=== PATIENT | male | born 1960 | race American Indian/Alaskan Native ===

== ENCOUNTER 2016-09-16 13:26 | Day surgery (SDC) | payer MEDICARE, MEDICAID ==
[2016-09-16 13:32] VITALS: BMI 53.4
[2016-09-16] MEDS ORDERED: Lactated Ringer's 500 ML IV ONE (14:20)
[2016-09-16] MEDS ORDERED: Etomidate 20 mg/10ml Inj IV ONE ×2 (14:21→14:33)
[2016-09-16] MEDS ORDERED: Midazolam 2 MG/2 ML VIAL ONE (14:22)
--- NOTE | 2016-09-16 14:22 | CP.SDSHP ---
Same Day Surgery H & P - History Proposed Procedure: Colonoscopy Pre-Op Diagnosis: Constipation - Previous Medical/Surgical History Cardiac: Hypertension, ASHD/CAD Endocrine/Metabolic: Diabetes Neuro: TIA/CVA - Allergies Allergies: Allergies No Known Allergies Allergy (Verified 06/22/16 10:43) - Current Medications Current Medications: reviewed - Physical Exam General Appearance: obese Mental Status: Alert & Oriented x3 Heart: WNL Lungs: WNL GI: WNL - {Optional Preform as Required} Abdomen: WNL (obese) - Impression Impression: constipation Pt. Evaluated Today:Candidate for Anesthesia & Procedure: Yes - Date & Time Date: 09/16/16 Time: 14:21 Short Stay Discharge - Short Stay Discharge Admitting Diagnosis/Reason for Visit: CONSTIPATION Disposition: HOME/ ROUTINE Referrals: Robinson Connors MD [Primary Care Provider] -
[2016-09-16 14:30] VITALS: O2SAT 100
[2016-09-16 15:14] VITALS: TEMP 97.2
[2016-09-16] MEDS ORDERED: Ketamine 50 mg/ml Inj (10 ml) ONE (15:24)
[2016-09-16 17:18] VITALS: BP 132/77; PULSE 63; RESP 18
== END 2016-09-16 17:09 | disposition home or self-care (01) ==
LOC: C.ENDO 13:26
PROVIDERS: ATTEND Internal Medicine Gastroenterology
DX: D12.2 Benign neoplasm of ascending colon (principal); K59.00 Constipation, unspecified
CPT/HCPCS: 45388; 82948; 88305; J2250; J7120

== ENCOUNTER 2017-05-10 08:08 | Day surgery (SDC) | payer MEDICARE, MEDICAID ==
[2016-10-20 11:28] VITALS: BMI 40.8
[2017-05-10] MEDS ORDERED: Verapamil 2 ML ONE (11:36)
[2017-05-10] MEDS ORDERED: Iodixanol 320 MG/ML 100 ML BOTTLE IV ONE (11:39)
[2017-05-10] MEDS ORDERED: Midazolam 2 MG/2 ML VIAL ONE ×3 (11:39→12:26)
[2017-05-10] MEDS ORDERED: DiphenhydrAMINE 50 mg/ml Inj ONE ×2 (12:09→12:27)
[2017-05-10] MEDS ORDERED: Sodium Chloride 0.9% 250 ML IV ONE (16:37)
[2017-05-10 16:55] VITALS: O2SAT 100
[2017-05-10 17:45] VITALS: BP 136/62; PULSE 64; RESP 16; TEMP 97.7
--- NOTE | 2017-05-10 23:43 | CARDCATH ---
PROCEDURE DATE: 05/10/2017 INDICATION: Mr. Brendan Vega is a 56-year-old male, moderately obese with BMI greater than 45 with body weight of 220 kilos; 450 pounds, who was having intermittent episodes of chest pain and shortness of breath. Patient had prior history of CAD and stenting. He could not undergo nuclear stress test secondary to his weight limitation. Therefore, he was brought to the shop laborer for evaluation of CAD as etiology of his presentation. PROCEDURE PERFORMED: Left heart catheterization with selective left and right coronary angiogram via left radial approach, left ventriculogram, 6-Bulgarian left radial arterial access, wristband for hemostasis. ANGIOGRAPHIC FINDINGS: Left main, large sized vessel bifurcates into LAD and left circumflex coronary artery. Left circumflex coronary artery is a large sized vessel runs in the AV groove and gives off 2 obtuse marginal branches. LAD is a large sized vessel, has a proximal stent with a proximal edge of the stent has a 70% stenosis, type I LAD gives off 2 medium sized diagonal branches. RCA is a large sized vessel, has mid stent patent, but distal edge of the stent had a 65% stenosis. Left ventriculogram performed show ejection fraction of 55%, LVEDP was 49 mmHg. IMPRESSION: RCA 65% stenosis, LAD approximately 75% stenosis. RECOMMENDATIONS: The patient is to undergo staged intervention of the LAD and RCA in 1 to 2 weeks' time at [facility]. Matty Beltran MD
--- NOTE | 2017-05-12 16:39 | CARD ---
APPROVED REPORT EKG Measurement Heart [id number] <Conclusion> Sinus bradycardia with 1st degree AV block Otherwise normal ECG
== END 2017-05-10 18:21 | disposition home or self-care (01) ==
LOC: C.SDS 08:08
PROVIDERS: ATTEND Internal Medicine Interventional Cardiology
DX: I25.118 Atherosclerotic heart disease of native coronary artery with other forms of angina pectoris (principal)
CPT/HCPCS: 82948; 93005; 93452; C1769; C1887; C1894; J1200; J2001; J2250; J3010; J7040; Q9967

== ENCOUNTER 2018-04-08 08:33 | Outpatient (CLI) | payer MEDICARE, MEDICAID | END 2018-04-08 08:34 | disposition home or self-care (01) | LOC: C.RADH 08:33 | DX: Z98.84 Bariatric surgery status (principal) ==

== ENCOUNTER 2018-04-08 09:25 | Emergency (ER) | payer MEDICARE, MEDICAID ==
[2018-04-08 09:25] VITALS: BMI 56.0
[2018-04-08 09:37] VITALS: O2SAT 100
--- NOTE | 2018-04-08 10:29 | C.PDOC ---
History Of Present Illness 57 y/o morbidly obese male, with PMHx of CVA and resulting right-sided weakness, lives in longterm, now presents to the ED with complaints of bilateral medial thigh pain for 1 week. He denies any abdominal pain, penile or testicular pain, nausea, vomiting, fevers, chest pain, or SOB other than baseline. No new weakness or numbness. He also denies any dysuria, hematuria, incontinence, testicular pain/swelling, penile pain or swelling. Of note patient is bed bound at baseline. Time Seen by Provider: 04/08/18 09:45 Chief Complaint (Nursing): Groin Pain History Per: Patient History/Exam Limitations: no limitations Onset/Duration Of Symptoms: Days Current Symptoms Are (Timing): Still Present Past Medical History Reviewed: Historical Data, Nursing Documentation, Vital Signs Vital Signs: Last Vital Signs Temp 98 F 04/08/18 09:33 Pulse 69 04/08/18 09:33 Resp 20 04/08/18 09:33 BP 150/65 04/08/18 09:33 Pulse Ox 100 04/08/18 09:33 - Medical History PMH: Arthritis, CAD, Colonic Polyps, Depression, Gall Bladder Disease (ACUTE CHOLECYSTITIS), HTN, Hypercholesterolemia Denies: Diabetes, Hepatitis, HIV, Chronic Kidney Disease, Sexually Transmitted Disease Comment Only: Seizures (pt denies seizures) Surgical History: Coronary Stent (X2, ptca last was 04/2017), Endoscopy Denies: Pacemaker - [facility] Procedures CATARAC PHACOEMULS/ASPIR (03/06/04) EXTRACAP LENS EXTRAC NEC (03/06/04) Family History: States: No Known Family Hx - Social History Hx Tobacco Use: No Hx Alcohol Use: No Hx Substance Use: No - Immunization History Hx Tetanus Toxoid Vaccination: No Hx Influenza Vaccination: No Hx Pneumococcal Vaccination: No Review Of Systems Constitutional: Negative for: Fever, Chills Cardiovascular: Negative for: Chest Pain Respiratory: Negative for: Shortness of Breath Gastrointestinal: Negative for: Nausea, Vomiting, Abdominal Pain Genitourinary: Negative for: Dysuria, Incontinence, Hematuria, Penile Discharge, Penile Pain, Other (testicular pain/swelling) Musculoskeletal: Positive for: Other (Pain to bilateral medial thighs) Skin: Negative for: Rash Neurological: Negative for: Weakness (no new weakness), Numbness Physical Exam - Physical Exam Appears: Non-toxic, No Acute Distress, Other (Morbidly obese, 210 kilo male) Skin: Warm, No Rash Head: Atraumatic, Normacephalic Eye(s): bilateral: PERRL, EOMI Neck: Supple Chest: Symmetrical, No Tenderness Cardiovascular: Rhythm Regular, No Murmur Respiratory: No Rales, No Rhonchi, No Wheezing, Other (Clear to auscultation bilaterally) Gastrointestinal/Abdominal: Bowel Sounds (normoactive), Soft, No Tenderness, No Distention, No Guarding, No Rebound Male Genital: Normal Inspection, No Testicular Tenderness, No Testicular Swelling, No Inguinal Tenderness, No Inguinal Swelling, No Scrotal Swelling, No Circumcised Extremity: No Normal ROM (dec rom right upper and lower ext from stroke), Tenderness (Bilateral medial thigh tenderness, with no erythema or increased warmth), Capillary Refill (< 2 sec), Swelling (+ bilateral edema, with fullness and induration to posterior right lower thigh compared to left ), Other (fullness/mild induration to the medial posterior right lower thigh) Pulses: Left Dorsalis Pedis: Decreased (1+), Right Dorsalis Pedis: Decreased (1+) Neurological/Psych: Oriented x3, Normal Speech, Normal Cognition, Normal Sensation ED Course And Treatment O2 Sat by Pulse Oximetry: 100 (RA) Pulse Ox Interpretation: Normal Medical Decision Making Medical Decision Making: Impression: 57 y/o morbidly obese male presenting w/ bilateral medial thigh pain, right > left. Patient has hx of right-sided weakness secondary to old CVA, and is bed bound. No associated urinary complaints, fevers, rash, testicular pain or swelling. Plan: Tylenol PO given for pain. Venous doppler study of the bilateral LE ordered. 1305 bilateral venous dopplers of lower extremities neg, discussed with Dr Graham, will send pt back to longterm. Disposition Discussed With : Emerita Giles Doctor Will See Patient In The: Office Counseled Patient/Family Regarding: Studies Performed, Diagnosis, Need For Followup - Disposition Disposition: TRANSF TO SNF Disposition Time: 13:09 Condition: GOOD Additional Instructions: Take Tylenol or Motrin for pain to thighs. FOllow up with Dr Giles. Return for any worse symptoms, Instructions: Muscle and Bone Pain (DC) Forms: [facility] (Danish), General Discharge Instructions - Clinical Impression Clinical Impression: Bilateral thigh pain - PA / INSTRUMENT MECHANICS SUPERVISOR / Resident Statement MD/DO has reviewed & agrees with the documentation as recorded. - Scribe Statement The provider has reviewed the documentation as recorded by the Abelibivet Allen All medical record entries made by the Abelibe were at my direction and personally dictated by me. I have reviewed the chart and agree that the record accurately reflects my personal performance of the history, physical exam, medical decision making, and the department course for this patient. I have also personally directed, reviewed, and agree with the discharge instructions and disposition.
[2018-04-08 13:30] VITALS: BP 145/59; PULSE 88; RESP 18; TEMP 97.7
--- NOTE | 2018-04-11 09:52 | VASCLAB ---
Date of service: 04/08/2018 PROCEDURE: Lower Extremity Venous Duplex Exam. HISTORY: Bilateral medial thigh pain, non ambulatory PRIORS: None. TECHNIQUE: Bilateral common femoral, femoral, popliteal and posterior tibial, peroneal and great saphenous veins were evaluated. Flow was assessed with color Doppler, compressibility, assessment of phasic flow and augmentation response. Report prepared by BEBA Parada FINDINGS: RIGHT: 1. Common Femoral Vein: 1.1. Compressibility - Fully compressible: Thrombus - None : Flow - Phasic: Augmentation -Normal: Reflux - None. 2. Femoral Vein: (Proximal to mid views only) 2.1. Compressibility - Fully compressible: Thrombus - None : Flow - Phasic: Augmentation -Normal: Reflux - None. 3. Popliteal Vein: 3.1. Compressibility - Fully compressible: Thrombus - None : Flow - Phasic: Augmentation -Normal: Reflux - None. 4. Posterior Tibial Vein: 5. Peroneal Vein: 6. Great Saphenous Vein: 6.1. Compressibility - Fully compressible: Thrombus - None: Flow - Phasic: Augmentation - Normal: Reflux - None. LEFT: 1. Common Femoral Vein: 1.1. Compressibility - Fully compressible: Thrombus - None: Flow - Phasic: Augmentation -Normal: Reflux - None. 2. Femoral Vein: (Proximal to mid views only) 2.1. Compressibility - Fully compressible: Thrombus - None: Flow - Phasic: Augmentation -Normal: Reflux - None. 3. Popliteal Vein: 3.1. Compressibility - Fully compressible: Thrombus - None : Flow - Phasic: Augmentation -Normal: Reflux - None. 4. Posterior Tibial Vein: 5. Peroneal Vein: 6. Great Saphenous Vein: 6.1. Compressibility - Fully compressible: Thrombus - None: Flow - Phasic: Augmentation - Normal: Reflux - None. OTHER FINDINGS: Bilateral common femoral, proximal to mid femoral, popliteal and great saphenous veins are compressible. Technically limited and difficult exam due to patient large body habitus. IMPRESSION: No evidence of deep or superficial vein thrombosis of bilateral lower extremities, for the examined veins.
== END 2018-04-08 13:32 ==
LOC: C.ER 09:25
DX: M79.652 Pain in left thigh (principal); M79.651 Pain in right thigh; I25.10 Atherosclerotic heart disease of native coronary artery without angina pectoris; I10 Essential (primary) hypertension; I69.351 Hemiplegia and hemiparesis following cerebral infarction affecting right dominant side

== ENCOUNTER 2018-05-27 23:47 | Inpatient (IN) | payer MEDICAID, MEDICARE, OTHER ==
--- NOTE | 2018-05-28 00:10 | C.PDOC ---
History Of Present Illness 57 year old male with a history of CAD, depression, HTN, high cholesterol, stroke (with residual right sided deficit) presents to the emergency department from half-way with complaints of bilateral thigh and groin pain. Patient s tates that he has had the pain since January 2018 but it worsened recently. He notes that pain as throbbing. He denies any trauma to the area. No abnormal penile discharge. Patient denies rash, dysuria, constipation, diarrhea, dark bloody stools, and leg swelling. PMD: Dr. Giles Time Seen by Provider: 05/28/18 00:04 Chief Complaint (Nursing): Groin Pain History Per: Patient History/Exam Limitations: no limitations Onset/Duration Of Symptoms: Other (4 months) Current Symptoms Are (Timing): Still Present Quality Of Discomfort: "Pain" Associated Symptoms: denies: Diarrhea, Constipation, Urinary Symptoms, Other (leg swelling) Past Medical History Reviewed: Historical Data, Nursing Documentation, Vital Signs Vital Signs: Last Vital Signs Temp 99 F 05/28/18 00:01 Pulse 60 05/28/18 00:01 Resp 16 05/28/18 00:01 BP 165/68 H 05/28/18 00:01 Pulse Ox 99 05/28/18 00:01 - Medical History PMH: Arthritis, CAD, Colonic Polyps, Depression, Gall Bladder Disease (ACUTE CHOLECYSTITIS), HTN, Hypercholesterolemia Denies: Diabetes, Hepatitis, HIV, Chronic Kidney Disease, Sexually Transmitted Disease Comment Only: Seizures (pt denies seizures) Surgical History: Coronary Stent (X2, ptca last was 04/2017), Endoscopy Denies: Pacemaker - [facility] Procedures CATARAC PHACOEMULS/ASPIR (03/06/04) EXTRACAP LENS EXTRAC NEC (03/06/04) Family History: States: No Known Family Hx - Social History Hx Tobacco Use: No Hx Alcohol Use: No Hx Substance Use: No - Immunization History Hx Tetanus Toxoid Vaccination: No Hx Influenza Vaccination: No Hx Pneumococcal Vaccination: No Review Of Systems Constitutional: Negative for: Fever, Chills, Weakness, Malaise Eyes: Negative for: Pain, Vision Change ENT: Negative for: Ear Pain, Ear Discharge, Nose Pain Cardiovascular: Negative for: Chest Pain, Palpitations, Orthopnea Respiratory: Negative for: Cough, Shortness of Breath, Hemoptysis, SOB with Excertion, Pleuritic Pain Gastrointestinal: Negative for: Nausea, Abdominal Pain, Diarrhea, Constipation, Melena Genitourinary: Negative for: Dysuria, Frequency Musculoskeletal: Positive for: Other (thigh pain, groin pain). Negative for: Neck Pain, Shoulder Pain, Back Pain, Leg Pain (leg swelling) Skin: Negative for: Rash Neurological: Negative for: Weakness, Numbness Psych: Negative for: Anxiety, Depression Physical Exam - Physical Exam Appears: Well, Non-toxic, No Acute Distress Skin: Normal Color, Warm, Dry Head: Atraumatic, Normacephalic Eye(s): bilateral: Normal Inspection, PERRL, EOMI Nose: Normal Oral Mucosa: Moist Tongue: Normal Appearing Lips: Normal Appearing Teeth: Normal Dentition Gingiva: Normal Appearing Throat: Normal, No Erythema, No Exudate Neck: Normal, Supple, Other (no meningeal signs) Chest: Symmetrical, No Tenderness Cardiovascular: Rhythm Regular, No Murmur Respiratory: Normal Breath Sounds, No Rales, No Rhonchi, No Wheezing Gastrointestinal/Abdominal: Soft, No Tenderness, No Guarding, No Rebound, Other (obese) Back: Normal Inspection, No CVA Tenderness, No Vertebral Tenderness Male Genital: Normal Inspection, No Testicular Tenderness, No Testicular Swelling, No Inguinal Tenderness, No Inguinal Swelling, No Scrotal Swelling Extremity: No Normal ROM, No Tenderness, No Pedal Edema, No Calf Tenderness, No Capillary Refill, Other (n/v intact b/l LE) Extremity: Bilateral: Atraumatic, No Pedal Edema, Normal Color And Temperature, Normal ROM Pulses: Left Dorsalis Pedis: Normal, Right Dorsalis Pedis: Normal Neurological/Psych: Oriented x3, Normal Speech, Normal Cognition, Other (residual right-sided deficit) ED Course And Treatment - Laboratory Results Result Diagrams: 05/28/18 00:54 05/28/18 00:54 O2 Sat by Pulse Oximetry: 99 (RA) Pulse Ox Interpretation: Normal Medical Decision Making Medical Decision Makin57 year old male with a history of CAD, depression, HTN, high cholesterol, stroke (with residual right sided deficit) presents to the emergency department from half-way with complaints of bilateral thigh and groin pain. ?DVT given on stretcher / bed for most of day given R sided deficit in NH. No perineum rash noted. No crepitus or erythema. No penile d/c or scrotal rash. No signs of trauma. No b/l LE edema. No CP or SOB. N/V intact distally in b/l LE. Plan: Blood Bank Type and Screen CMP CBC PTT Prothrombin Time US Testicular Venous Duplex Scan Lower Extremity [address] Giles, recommended admission for observation, heparin, and venous doppler. US Testicular: Impression: Bilateral heterogeneous echotexture of the testicles. Findings represent sequelae of prior inflammatory pathology/infection. Followup exam is suggested to exclude testicular neoplastic infiltration which is felt less likely on the current exam. No evidence of testicular torsion. No definite mass lesion is noted. Mild bilateral hydroceles. 0306 pt denies any dark or bloody stool Findings on US w/ sequelae of prior infection / inflammation: No acute findings per US. No elevated WBC pending urine heparin ordered given no venous doppler availabe currently. 0331 urine unremarkable Disposition - Disposition Disposition Time: 01:53 Condition: GOOD Forms: [facility] (Uzbek) - Clinical Impression Clinical Impression: Leg pain, Testicle pain - Scribe Statement The provider has reviewed the documentation as recorded by the Scribe (Hiram Hercules) Provider Attestation: All medical record entries made by the Scribe were at my direction and personally dictated by me. I have reviewed the chart and agree that the record accurately reflects my personal performance of the history, physical exam, medical decision making, and the department course for this patient. I have also personally directed, reviewed, and agree with the discharge instructions and disposition.
[2018-05-28 00:57] LABS: BASO % 0.7 % (0.0-2.0); EOS # 0.1 K/uL (0.0-0.7); EOS % 2.2 % (0.0-4.0); HEMOGLOBIN 12.9 g/dL (12.0-18.0); LYMPH # 1.7 K/uL (1.0-4.3); LYMPH % 31.5 % (20.0-40.0); MEAN CELL VOLUME 80.7 fL (80.0-94.0); MEAN CORPUSCULAR HEMOGLOBIN 26.1 pg (27.0-31.0); MEAN CORPUSCULAR HGB CONC 32.3 g/dL (33.0-37.0); MEAN PLATELET VOLUME 8.5 fL (7.2-11.7); MONO # 0.5 K/uL (0.0-0.8); MONO % 8.7 % (0.0-10.0); NEUT % 56.9 % (50.0-75.0); NRBC % 0.1 % (0.0-2.0); RBC 4.94 Mil/uL (4.40-5.90); RED CELL DISTRIBUTION WIDTH 15.7 % (11.5-14.5); WHITE BLOOD COUNT 5.3 K/uL (4.8-10.8)
[2018-05-28 01:06] LABS: INR 1.1; PROTHROMBIN TIME 11.5 SECONDS (9.7-12.2)
[2018-05-28 01:10] LABS: ALB/GLOB RATIO 1.1 (1.0-2.1); ALBUMIN 3.9 g/dL (3.5-5.0); CALCIUM 9.5 mg/dl (8.6-10.4)
[2018-05-28] MEDS ORDERED: Tramadol 25 mg PO STA (02:12)
[2018-05-28] MEDS ORDERED: Tramadol 25 mg ONE (02:17)
[2018-05-28 03:20] LABS: SQUAMOUS EPITHIAL < 1 /hpf (0-5); URINE BILIRUBIN NEGATIVE (NEGATIVE); URINE BLOOD NEGATIVE (NEGATIVE); URINE CLARITY Clear (Clear); URINE COLOR Yellow (YELLOW); URINE GLUCOSE (UA) 1+ mg/dL (Normal); URINE LEUKOCYTE ESTERASE NEG Leu/uL (Negative); URINE PROTEIN NEGATIVE (NEGATIVE); URINE UROBILINOGEN NORMAL mg/dL (0.2-1.0)
[2018-05-28] MEDS: Heparin25000 units/250ml 1/2NS 25,000 UNITS/250 ML BAG IV PRN ×3 (04:14→18:59)
[2018-05-28] MEDS ORDERED: Albuterol 0.083% Inhal Sol (2.5 mg/3 mL) UD IH PRN (07:27)
[2018-05-28 07:50] VITALS: RESP 20
[2018-05-28] MEDS: (Lantus) Insulin Glargine, Recombinant SC SCH ×2 (08:43→21:50)
[2018-05-28] MEDS: (Novolog) Insulin Aspart, Recombinant 100 u/ml 10 ml vial SC SCH ×3 (08:44→16:53)
[2018-05-28] MEDS: (Novolin R) Insulin Human Regular 100 units/ml vial SC SCH ×4 (08:45→22:00)
[2018-05-28] MEDS ORDERED: Ergocalciferol 50,000 Intl Units Cap PO SCH (10:00)
--- NOTE | 2018-05-28 11:10 | VASCLAB ---
Date of service: 05/28/2018 PROCEDURE: Lower Extremity Venous Duplex Exam. HISTORY: b/l le pain PRIORS: None. TECHNIQUE: Bilateral common femoral, femoral, popliteal and posterior tibial, peroneal and great saphenous veins were evaluated. Flow was assessed with color Doppler, compressibility, assessment of phasic flow and augmentation response. Report prepared by Marisabel Archer Eze FINDINGS: RIGHT: 1. Common Femoral Vein: 1.1. Compressibility - Fully compressible: Thrombus - None : Flow - Phasic: Augmentation -Normal: Reflux - None. 2. Femoral Vein: 2.1. Compressibility - Fully compressible: Thrombus - None : Flow - Phasic: Augmentation -Normal: Reflux - None. 3. Popliteal Vein: 3.1. Compressibility - Fully compressible: Thrombus - None : Flow - Phasic: Augmentation -Normal: Reflux - None. 4. Great Saphenous Vein: 4.1. Compressibility - Fully compressible: Thrombus - None: Flow - Phasic: Augmentation - Normal: Reflux - None. LEFT: 1. Common Femoral Vein: 1.1. Compressibility - Fully compressible: Thrombus - None: Flow - Phasic: Augmentation -Normal: Reflux - None. 2. Femoral Vein: 2.1. Compressibility - Fully compressible: Thrombus - None: Flow - Phasic: Augmentation -Normal: Reflux - None. 3. Popliteal Vein: 3.1. Compressibility - Fully compressible: Thrombus - None : Flow - Phasic: Augmentation -Normal: Reflux - None. 4. Great Saphenous Vein: 4.1. Compressibility - Fully compressible: Thrombus - None: Flow - Phasic: Augmentation - Normal: Reflux - None. OTHER FINDINGS: Right: The mid to distal femoral, posterior tibial and peroneal veins were not visualized due to body habitus, limited study. Left: The mid to distal femoral, posterior tibial and peroneal veins were not visualized due to body habitus, limited study. IMPRESSION: Right: No evidence of deep or superficial vein thrombosis of the right lower extremity in those veins visualized. Normal valve function noted of the right side. Left: No evidence of deep or superficial vein thrombosis of the left lower extremity in those veins visualized. Normal valve function noted of the left side.
[2018-05-28] MEDS: Metoprolol Succinate 100 mg XL Tab PO SCH (11:11)
[2018-05-28] MEDS: Calcium-Vit D 500 mg-200 Units Tab UD PO SCH (11:12)
[2018-05-28] MEDS: Multiple Vitamins Tab PO SCH (11:13)
[2018-05-28] MEDS: Divalproex 250 mg DR Tab PO SCH ×2 (11:14→17:41)
--- NOTE | 2018-05-28 17:37 | US ---
Date of service: 05/28/2018 HISTORY: b/l testicle pain TECHNIQUE: Realtime sonography through the scrotum with color and doppler flow. COMPARISON: None Available. FINDINGS: RIGHT TESTICLE: Measures 3.9 x 2.0 x 2.9 cm. Heterogeneous echotexture.. Normal flow . RIGHT EPIDIDYMIS: Epididymal head measures 1.1 x 0.8 x 1.3 cm. Grossly unremarkable appearance with normal flow. LEFT TESTICLE: Measures 3.8 x 1.6 x 2.7 cm. Normal echotexture and flow. LEFT EPIDIDYMIS: Epididymal head measures 0.8 x 0.8 x 0.8 cm. Grossly unremarkable with normal flow. HYDROCELE: Bilateral hydroceles VARICOCELE: None. OTHER FINDINGS: None. IMPRESSION: Both testicles are heterogeneous right greater than left however both exhibit arterial flow. Bilateral hydroceles.
[2018-05-28 19:40] LABS: IRON 47 ug/dL (49-181)
[2018-05-28 19:41] LABS: HDL CHOLESTEROL 40 mg/dL (30-70)
[2018-05-28 19:50] LABS: % IRON SATURATION 18 (20-55); TOTAL IRON BINDING CAPACITY 261 ug/dL (250-450)
[2018-05-28 19:52] LABS: LDL CHOLESTEROL 113 mg/dL (0-129)
[2018-05-28 20:48] LABS: FOLATE 5.9 ng/mL
[2018-05-28 21:37] LABS: URINE BILIRUBIN NEGATIVE (NEGATIVE); URINE BLOOD 3+ (NEGATIVE); URINE CLARITY Clear (Clear); URINE COLOR Yellow (YELLOW); URINE GLUCOSE (UA) 3+ mg/dL (Normal); URINE LEUKOCYTE ESTERASE NEG Leu/uL (Negative); URINE PROTEIN NEGATIVE (NEGATIVE); URINE UROBILINOGEN NORMAL mg/dL (0.2-1.0)
[2018-05-29] MEDS: (Novolin R) Insulin Human Regular 100 units/ml vial SC SCH ×4 (08:30→21:30)
[2018-05-29] MEDS: (Novolog) Insulin Aspart, Recombinant 100 u/ml 10 ml vial SC SCH ×3 (08:30→17:59)
[2018-05-29] MEDS: (Lantus) Insulin Glargine, Recombinant SC SCH ×2 (08:30→21:30)
[2018-05-29 08:46] LABS: INR 1.1; PROTHROMBIN TIME 12.5 SECONDS (9.7-12.2)
[2018-05-29] MEDS: Multiple Vitamins Tab PO SCH (10:28)
[2018-05-29] MEDS: Calcium-Vit D 500 mg-200 Units Tab UD PO SCH (10:28)
[2018-05-29] MEDS: Divalproex 250 mg DR Tab PO SCH ×2 (10:29→17:55)
[2018-05-29] MEDS: Metoprolol Succinate 100 mg XL Tab PO SCH (10:29)
--- NOTE | 2018-05-29 11:22 | CP.PCM.CON ---
History of Present Illness - History of Present Illness History of Present Illness: Pulmonary Consult, Covering Dr Rosales The Patient was seen and examined at the bedside, Medical records reviewed, and management issues were discussed and formulated with the house staff. Events reviewed Mr Vega is a 57 year old male with a history of HTN, HLD, CAD, stroke (with residual right sided deficit) and depression Who [facility] department [facility] with complaints of bilateral thigh and groin pain. Pulmonary consult called for shortness of breath concerning for acute DVT since Patient on stretcher/bed for most of day given R sided deficit in NH. No CP, cough, sputum production or Hemoptysis Patient comfortable, saturation 96% on RA Stat CXR ordered Past Patient History - Infectious Disease Hx of Infectious Diseases: None - Past Medical History & Family History Past Medical History?: Yes - Past Social History Smoking Status: Never Smoked - CARDIAC Hx Cardiac Disorders: Yes (CAD, Coronary Stent) Hx Hypercholesterolemia: Yes Hx Hypertension: Yes - PULMONARY Hx Respiratory Disorders: No Hx Tuberculosis: No - NEUROLOGICAL HX Cerebrovascular Accident: Yes (CVA 2007) - HEENT Hx HEENT Problems: Yes Other/Comment: RIGHT EYE CORNEA TRANSPLANT 1984 - RENAL Hx Chronic Kidney Disease: No - ENDOCRINE/METABOLIC Hx Endocrine Disorders: Yes Hx Diabetes Mellitus Type 2: Yes - HEMATOLOGICAL/ONCOLOGICAL Hx Human Immunodeficiency Virus (HIV): No - INTEGUMENTARY Hx Dermatological Problems: No - MUSCULOSKELETAL/RHEUMATOLOGICAL Hx Arthritis: Yes - GASTROINTESTINAL Hx Gall Bladder Disease: Yes (ACUTE CHOLECYSTITIS) - GENITOURINARY/GYNECOLOGICAL Hx Sexually Transmitted Disorders: No - PSYCHIATRIC Hx Depression: Yes Hx Substance Use: No - SURGICAL HISTORY Hx Coronary Stent: Yes (X2, ptca last was 04/2017) - ANESTHESIA Hx Anesthesia: Yes Hx Anesthesia Reactions: No Hx Malignant Hyperthermia: No Meds Allergies/Adverse Reactions: Allergies Allergy/AdvReac Type Severity Reaction Status Date / Time No Known Allergies Allergy Verified 05/28/18 00:06 - Medications Medications: Current Medications Albuterol Sulfate (Albuterol 0.083% Inhal Maria Isabel (2.5 Mg/3 Ml) Ud) 2.5 mg IH RQ6 PRN PRN Reason: Shortness of Breath Amlodipine Besylate (Norvasc) 10 mg PO DAILY [facility] Last Admin: 05/29/18 10:28 Dose: 10 mg Aspirin (Ecotrin) 81 mg PO DAILY [facility] Last Admin: 05/29/18 10:28 Dose: 81 mg Calcium/Vitamin D (Oyster Shell Calcium/Vitamin D 500 Mg-200 Iu) 1 tab PO DAILY [facility] Last Admin: 05/29/18 10:28 Dose: 1 tab Clopidogrel Bisulfate (Plavix) 75 mg PO DAILY [facility] Last Admin: 05/29/18 10:29 Dose: 75 mg Divalproex Sodium (Depakote Dr) 250 mg PO BID [facility] Last Admin: 05/29/18 10:29 Dose: 250 mg Docusate Sodium (Colace) 200 mg PO HS PRN PRN Reason: Constipation Last Admin: 05/28/18 11:11 Dose: 200 mg Ergocalciferol (Drisdol 50,000 Intl Units Cap) 1 cap PO QWK [facility] Last Admin: 05/28/18 11:16 Dose: 1 cap Famotidine (Pepcid) 20 mg PO BID [facility] Last Admin: 05/29/18 10:28 Dose: 20 mg Ferrous Sulfate (Feosol) 325 mg PO DAILY [facility] Last Admin: 05/29/18 10:28 Dose: 325 mg Furosemide (Lasix) 20 mg PO DAILY [facility] Last Admin: 05/29/18 10:28 Dose: 20 mg Hydrochlorothiazide (Hydrodiuril) 25 mg PO DAILY [facility] Last Admin: 05/29/18 10:28 Dose: 25 mg Insulin Aspart (Novolog) 12 unit SC ACTID [facility] Last Admin: 05/29/18 08:30 Dose: 12 units Insulin Glargine (Lantus) 30 unit SC ACBHS [facility] Last Admin: 05/29/18 08:30 Dose: 30 units Insulin Human Regular (Novolin R) 0 unit SC ACHS [facility]; Protocol Last Admin: 05/29/18 08:30 Dose: 2 units Losartan Potassium (Cozaar) 100 mg PO DAILY [facility] Last Admin: 05/29/18 10:28 Dose: 100 mg Metoprolol Succinate (Toprol Xl) 100 mg PO DAILY [facility] Last Admin: 05/29/18 10:29 Dose: 100 mg Multivitamins (Hexavitamin) 1 tab PO DAILY [facility] Last Admin: 05/29/18 10:28 Dose: 1 tab Tramadol HCl (Ultram) 50 mg PO TID PRN PRN Reason: pain Last Admin: 05/29/18 10:33 Dose: 50 mg Results - Vital Signs Recent Vital Signs: Last Vital Signs Temp 99.4 F 05/29/18 00:00 Pulse 62 05/29/18 00:00 Resp 20 05/29/18 00:00 BP 137/65 05/29/18 10:28 Pulse Ox 96 05/29/18 00:00 - Labs Result Diagrams: 05/28/18 00:54 05/28/18 00:54 Labs: Laboratory Results - last 24 hr 05/28/18 05/28/18 05/28/18 11:16 16:04 19:25 PT INR APTT POC Glucose (mg/dL) 248 H 292 H Hemoglobin A1c Iron TIBC % Saturation Triglycerides 104 Cholesterol 168 LDL Cholesterol Direct 113 HDL Cholesterol 40 Vitamin B12 > 1000 H Folate 5.9 TSH 3rd Generation Urine Color Urine Clarity Urine pH Ur Specific [place] Urine Protein Urine Glucose (UA) Urine Ketones Urine Blood Urine Nitrate Urine Bilirubin Urine Urobilinogen Ur Leukocyte Esterase Urine WBC (Auto) Urine RBC (Auto) 05/28/18 05/28/18 05/28/18 19:25 19:25 19:25 PT INR APTT > 400 H* D POC Glucose (mg/dL) Hemoglobin A1c 9.7 H Iron 47 L TIBC 261 % Saturation 18 L Triglycerides Cholesterol LDL Cholesterol Direct HDL Cholesterol Vitamin B12 Folate TSH 3rd Generation Urine Color Urine Clarity Urine pH Ur Specific [place] Urine Protein Urine Glucose (UA) Urine Ketones Urine Blood Urine Nitrate Urine Bilirubin Urine Urobilinogen Ur Leukocyte Esterase Urine WBC (Auto) Urine RBC (Auto) 05/28/18 05/28/18 05/29/18 21:06 21:23 02:05 PT INR APTT POC Glucose (mg/dL) 280 H 321 H Hemoglobin A1c Iron TIBC % Saturation Triglycerides Cholesterol LDL Cholesterol Direct HDL Cholesterol Vitamin B12 Folate TSH 3rd Generation Urine Color Yellow Urine Clarity Clear Urine pH 5.0 Ur Specific [place] 1.013 Urine Protein Negative Urine Glucose (UA) 3+ H Urine Ketones Negative Urine Blood 3+ H Urine Nitrate Negative Urine Bilirubin Negative Urine Urobilinogen Normal Ur Leukocyte Esterase Neg Urine WBC (Auto) 1 Urine RBC (Auto) 59 H 05/29/18 05/29/18 05/29/18 07:12 08:15 08:31 PT 12.5 H INR 1.1 APTT 31 D POC Glucose (mg/dL) 244 H Hemoglobin A1c Iron TIBC % Saturation Triglycerides Cholesterol LDL Cholesterol Direct HDL Cholesterol Vitamin B12 Folate TSH 3rd Generation 4.32 Urine Color Urine Clarity Urine pH Ur Specific [place] Urine Protein Urine Glucose (UA) Urine Ketones Urine Blood Urine Nitrate Urine Bilirubin Urine Urobilinogen Ur Leukocyte Esterase Urine WBC (Auto) Urine RBC (Auto)
--- NOTE | 2018-05-29 13:50 | RAD ---
Date of service: 05/29/2018 HISTORY: Shortness of breath COMPARISON: No prior. FINDINGS: LUNGS: Poor inspiration with low lung volumes, crowded bronchovascular markings and mild bibasilar atelectasis PLEURA: No significant pleural effusion identified, no pneumothorax apparent. CARDIOVASCULAR: No aortic atherosclerotic calcification present. Heart appears mildly enlarged. No pulmonary vascular congestion. OSSEOUS STRUCTURES: No significant abnormalities. VISUALIZED UPPER ABDOMEN: Normal. OTHER FINDINGS: None. IMPRESSION: Poor inspiration with low lung volumes, crowded bronchovascular markings and mild bibasilar atelectasis.
--- NOTE | 2018-05-29 16:27 | CP.PCM.CON ---
History of Present Illness - History of Present Illness History of Present Illness: UROLOGY CONSULTATION Past Patient History - Infectious Disease Hx of Infectious Diseases: None - Past Medical History & Family History Past Medical History?: Yes - Past Social History Smoking Status: Never Smoked - CARDIAC Hx Cardiac Disorders: Yes (CAD, Coronary Stent) Hx Hypercholesterolemia: Yes Hx Hypertension: Yes - PULMONARY Hx Respiratory Disorders: No Hx Tuberculosis: No - NEUROLOGICAL HX Cerebrovascular Accident: Yes (CVA 2007) - HEENT Hx HEENT Problems: Yes Other/Comment: RIGHT EYE CORNEA TRANSPLANT 1984 - RENAL Hx Chronic Kidney Disease: No - ENDOCRINE/METABOLIC Hx Endocrine Disorders: Yes Hx Diabetes Mellitus Type 2: Yes - HEMATOLOGICAL/ONCOLOGICAL Hx Human Immunodeficiency Virus (HIV): No - INTEGUMENTARY Hx Dermatological Problems: No - MUSCULOSKELETAL/RHEUMATOLOGICAL Hx Arthritis: Yes - GASTROINTESTINAL Hx Gall Bladder Disease: Yes (ACUTE CHOLECYSTITIS) - GENITOURINARY/GYNECOLOGICAL Hx Sexually Transmitted Disorders: No - PSYCHIATRIC Hx Depression: Yes Hx Substance Use: No - SURGICAL HISTORY Hx Coronary Stent: Yes (X2, ptca last was 04/2017) - ANESTHESIA Hx Anesthesia: Yes Hx Anesthesia Reactions: No Hx Malignant Hyperthermia: No Meds Allergies/Adverse Reactions: Allergies Allergy/AdvReac Type Severity Reaction Status Date / Time No Known Allergies Allergy Verified 05/28/18 00:06 - Medications Medications: Current Medications Albuterol Sulfate (Albuterol 0.083% Inhal Maria Isabel (2.5 Mg/3 Ml) Ud) 2.5 mg IH RQ6 PRN PRN Reason: Shortness of Breath Amlodipine Besylate (Norvasc) 10 mg PO DAILY [facility] Last Admin: 05/29/18 10:28 Dose: 10 mg Aspirin (Ecotrin) 81 mg PO DAILY [facility] Last Admin: 05/29/18 10:28 Dose: 81 mg Calcium/Vitamin D (Oyster Shell Calcium/Vitamin D 500 Mg-200 Iu) 1 tab PO DAILY [facility] Last Admin: 05/29/18 10:28 Dose: 1 tab Clopidogrel Bisulfate (Plavix) 75 mg PO DAILY [facility] Last Admin: 05/29/18 10:29 Dose: 75 mg Divalproex Sodium (Depakote Dr) 250 mg PO BID [facility] Last Admin: 05/29/18 10:29 Dose: 250 mg Docusate Sodium (Colace) 200 mg PO HS PRN PRN Reason: Constipation Last Admin: 05/28/18 11:11 Dose: 200 mg Ergocalciferol (Drisdol 50,000 Intl Units Cap) 1 cap PO QWK [facility] Last Admin: 05/28/18 11:16 Dose: 1 cap Famotidine (Pepcid) 20 mg PO BID [facility] Last Admin: 05/29/18 10:28 Dose: 20 mg Ferrous Sulfate (Feosol) 325 mg PO DAILY [facility] Last Admin: 05/29/18 10:28 Dose: 325 mg Furosemide (Lasix) 20 mg PO DAILY [facility] Last Admin: 05/29/18 10:28 Dose: 20 mg Hydrochlorothiazide (Hydrodiuril) 25 mg PO DAILY [facility] Last Admin: 05/29/18 10:28 Dose: 25 mg Insulin Aspart (Novolog) 12 unit SC ACTID [facility] Last Admin: 05/29/18 12:15 Dose: 12 units Insulin Glargine (Lantus) 30 unit SC ACBHS [facility] Last Admin: 05/29/18 08:30 Dose: 30 units Insulin Human Regular (Novolin R) 0 unit SC ACHS [facility]; Protocol Last Admin: 05/29/18 12:16 Dose: 2 units Losartan Potassium (Cozaar) 100 mg PO DAILY [facility] Last Admin: 05/29/18 10:28 Dose: 100 mg Metoprolol Succinate (Toprol Xl) 100 mg PO DAILY [facility] Last Admin: 05/29/18 10:29 Dose: 100 mg Multivitamins (Hexavitamin) 1 tab PO DAILY [facility] Last Admin: 05/29/18 10:28 Dose: 1 tab Tramadol HCl (Ultram) 50 mg PO TID PRN PRN Reason: pain Last Admin: 05/29/18 10:33 Dose: 50 mg Results - Vital Signs Recent Vital Signs: Last Vital Signs Temp 98.1 F 05/29/18 15:58 Pulse 61 05/29/18 15:58 Resp 20 05/29/18 15:58 BP 108/64 05/29/18 15:58 Pulse Ox 96 05/29/18 15:58 - Labs Result Diagrams: 05/28/18 00:54 05/28/18 00:54 Labs: Laboratory Results - last 24 hr 05/28/18 05/28/18 05/28/18 19:25 19:25 19:25 PT INR APTT > 400 H* D POC Glucose (mg/dL) Hemoglobin A1c 9.7 H Iron TIBC % Saturation Triglycerides 104 Cholesterol 168 LDL Cholesterol Direct 113 HDL Cholesterol 40 Vitamin B12 > 1000 H Folate 5.9 TSH 3rd Generation Urine Color Urine Clarity Urine pH Ur Specific [employer] Urine Protein Urine Glucose (UA) Urine Ketones Urine Blood Urine Nitrate Urine Bilirubin Urine Urobilinogen Ur Leukocyte Esterase Urine WBC (Auto) Urine RBC (Auto) 05/28/18 05/28/18 05/28/18 19:25 21:06 21:23 PT INR APTT POC Glucose (mg/dL) 280 H Hemoglobin A1c Iron 47 L TIBC 261 % Saturation 18 L Triglycerides Cholesterol LDL Cholesterol Direct HDL Cholesterol Vitamin B12 Folate TSH 3rd Generation Urine Color Yellow Urine Clarity Clear Urine pH 5.0 Ur [address] [employer] 1.013 Urine Protein Negative Urine Glucose (UA) 3+ H Urine Ketones Negative Urine Blood 3+ H Urine Nitrate Negative Urine Bilirubin Negative Urine Urobilinogen Normal Ur Leukocyte Esterase Neg Urine WBC (Auto) 1 Urine RBC (Auto) 59 H 05/29/18 05/29/18 05/29/18 02:05 07:12 08:15 PT INR APTT POC Glucose (mg/dL) 321 H 244 H Hemoglobin A1c Iron TIBC % Saturation Triglycerides Cholesterol LDL Cholesterol Direct HDL Cholesterol Vitamin B12 Folate TSH 3rd Generation 4.32 Urine Color Urine Clarity Urine pH Ur Specific [employer] Urine Protein Urine Glucose (UA) Urine Ketones Urine Blood Urine Nitrate Urine Bilirubin Urine Urobilinogen Ur Leukocyte Esterase Urine WBC (Auto) Urine RBC (Auto) 05/29/18 05/29/18 08:31 11:17 PT 12.5 H INR 1.1 APTT 31 D POC Glucose (mg/dL) 248 H Hemoglobin A1c Iron TIBC % Saturation Triglycerides Cholesterol LDL Cholesterol Direct HDL Cholesterol Vitamin B12 Folate TSH 3rd Generation Urine Color Urine Clarity Urine pH Ur Specific [employer] Urine Protein Urine Glucose (UA) Urine Ketones Urine Blood Urine Nitrate Urine Bilirubin Urine Urobilinogen Ur Leukocyte Esterase Urine WBC (Auto) Urine RBC (Auto) Assessment & Plan - Assessment and Plan (Free Text) Assessment: IMP: THIGH PAIN GROIN PAIN HX OF CVA, W RESULTANT R HEMIPARESIS OBESITY HYPERTENSION DM MICROHEMATURIA YS - Date & Time Date: 05/29/18 Time: 08:05
--- NOTE | 2018-05-29 16:42 | RAD ---
Date of service: 05/29/2018 PROCEDURE: Entire spine HISTORY: Pain COMPARISON: Comparison made with radiographs of the lumbar spine 04/08/[address] scan of the abdomen pelvis 11/09/2013 which image the lower thoracic and lumbar spine in 3 planes. Correlation also made with prior chest radiograph dated 07/08/2010 which image the thoracic spine TECHNIQUE: Limited AP views of the cervical thoracic and lumbar spine performed FINDINGS: No evidence of acute displaced fracture nor dislocation. The osseous structures intact. Mild multilevel degenerative spondylosis. Changes include endplate eburnation with lateral osteophyte formation most of which are bridging in the mid thoracic region. IMPRESSION: Limited study demonstrating no acute fractures. Follow-up study dedicated radiographs of the cervical thoracic and lumbar spine could be performed if indicated
--- NOTE | 2018-05-29 16:45 | RAD ---
PROCEDURE: Radiographs of the pelvis and bilateral hips HISTORY: pain COMPARISON: Correlation made with prior CT scan of the abdomen pelvis 11/09/2013 which image the pelvis and both hips in 3 planes. FINDINGS: BONES: No definitive radiographic evidence of acute displaced fracture nor dislocation. The osseous structures appear intact. Both femoral heads appropriately located within the respective acetabula. JOINTS: Right hip: Mild degenerative osteoarthritis both hips Sacroiliac Joints: Unremarkable. Pubic symphysis: Unremarkable. Mild degenerative spondylosis of the lumbosacral spine SOFT TISSUES: Normal. OTHER FINDINGS: None. IMPRESSION: No evidence of acute displaced fracture nor dislocation. Mild degenerative osteoarthritis both hip joints. Symptoms persist or occult fracture suspected clinically consider follow-up CT scan of the pelvis and both hips
--- NOTE | 2018-05-29 19:30 | CP.PCM.CON ---
History of Present Illness - History of Present Illness History of Present Illness: IDDM Past Patient History - Infectious Disease Hx of Infectious Diseases: None - Past Medical History & Family History Past Medical History?: Yes - Past Social History Smoking Status: Never Smoked - CARDIAC Hx Cardiac Disorders: Yes (CAD, Coronary Stent) Hx Hypercholesterolemia: Yes Hx Hypertension: Yes - PULMONARY Hx Respiratory Disorders: No Hx Tuberculosis: No - NEUROLOGICAL HX Cerebrovascular Accident: Yes (CVA 2007) - HEENT Hx HEENT Problems: Yes Other/Comment: RIGHT EYE CORNEA TRANSPLANT 1984 - RENAL Hx Chronic Kidney Disease: No - ENDOCRINE/METABOLIC Hx Endocrine Disorders: Yes Hx Diabetes Mellitus Type 2: Yes - HEMATOLOGICAL/ONCOLOGICAL Hx Human Immunodeficiency Virus (HIV): No - INTEGUMENTARY Hx Dermatological Problems: No - MUSCULOSKELETAL/RHEUMATOLOGICAL Hx Arthritis: Yes - GASTROINTESTINAL Hx Gall Bladder Disease: Yes (ACUTE CHOLECYSTITIS) - GENITOURINARY/GYNECOLOGICAL Hx Sexually Transmitted Disorders: No - PSYCHIATRIC Hx Depression: Yes Hx Substance Use: No - SURGICAL HISTORY Hx Coronary Stent: Yes (X2, ptca last was 04/2017) - ANESTHESIA Hx Anesthesia: Yes Hx Anesthesia Reactions: No Hx Malignant Hyperthermia: No Meds Allergies/Adverse Reactions: Allergies Allergy/AdvReac Type Severity Reaction Status Date / Time No Known Allergies Allergy Verified 05/28/18 00:06 - Medications Medications: Current Medications Albuterol Sulfate (Albuterol 0.083% Inhal Maria Isabel (2.5 Mg/3 Ml) Ud) 2.5 mg IH RQ6 PRN PRN Reason: Shortness of Breath Amlodipine Besylate (Norvasc) 10 mg PO DAILY [facility] Last Admin: 05/29/18 10:28 Dose: 10 mg Aspirin (Ecotrin) 81 mg PO DAILY [facility] Last Admin: 05/29/18 10:28 Dose: 81 mg Calcium/Vitamin D (Oyster Shell Calcium/Vitamin D 500 Mg-200 Iu) 1 tab PO DAILY [facility] Last Admin: 05/29/18 10:28 Dose: 1 tab Clopidogrel Bisulfate (Plavix) 75 mg PO DAILY [facility] Last Admin: 05/29/18 10:29 Dose: 75 mg Divalproex Sodium (Depakote Dr) 250 mg PO BID [facility] Last Admin: 05/29/18 17:55 Dose: Not Given Docusate Sodium (Colace) 200 mg PO HS PRN PRN Reason: Constipation Last Admin: 05/28/18 11:11 Dose: 200 mg Ergocalciferol (Drisdol 50,000 Intl Units Cap) 1 cap PO QWK [facility] Last Admin: 05/28/18 11:16 Dose: 1 cap Famotidine (Pepcid) 20 mg PO BID [facility] Last Admin: 05/29/18 17:55 Dose: 20 mg Ferrous Sulfate (Feosol) 325 mg PO DAILY [facility] Last Admin: 05/29/18 10:28 Dose: 325 mg Furosemide (Lasix) 20 mg PO DAILY [facility] Last Admin: 05/29/18 10:28 Dose: 20 mg Hydrochlorothiazide (Hydrodiuril) 25 mg PO DAILY [facility] Last Admin: 05/29/18 10:28 Dose: 25 mg Insulin Aspart (Novolog) 12 unit SC ACTID [facility] Last Admin: 05/29/18 17:59 Dose: 12 units Insulin Glargine (Lantus) 30 unit SC ACBHS [facility] Last Admin: 05/29/18 08:30 Dose: 30 units Insulin Human Regular (Novolin R) 0 unit SC ACHS [facility]; Protocol Last Admin: 05/29/18 17:58 Dose: 1 units Losartan Potassium (Cozaar) 100 mg PO DAILY [facility] Last Admin: 05/29/18 10:28 Dose: 100 mg Metoprolol Succinate (Toprol Xl) 100 mg PO DAILY [facility] Last Admin: 05/29/18 10:29 Dose: 100 mg Multivitamins (Hexavitamin) 1 tab PO DAILY [facility] Last Admin: 05/29/18 10:28 Dose: 1 tab Tramadol HCl (Ultram) 50 mg PO TID PRN PRN Reason: pain Last Admin: 05/29/18 10:33 Dose: 50 mg Results - Vital Signs Recent Vital Signs: Last Vital Signs Temp 98.1 F 05/29/18 15:58 Pulse 61 05/29/18 15:58 Resp 20 05/29/18 15:58 BP 108/64 05/29/18 15:58 Pulse Ox 96 05/29/18 15:58 - Labs Result Diagrams: 05/28/18 00:54 05/28/18 00:54 Labs: Laboratory Results - last 24 hr 05/28/18 05/28/18 05/28/18 19:25 19:25 19:25 PT INR APTT > 400 H* D POC Glucose (mg/dL) Hemoglobin A1c 9.7 H Iron TIBC % Saturation Triglycerides 104 Cholesterol 168 LDL Cholesterol Direct 113 HDL Cholesterol 40 Vitamin B12 > 1000 H Folate 5.9 TSH 3rd Generation Urine Color Urine Clarity Urine pH Ur Specific [place] Urine Protein Urine Glucose (UA) Urine Ketones Urine Blood Urine Nitrate Urine Bilirubin Urine Urobilinogen Ur Leukocyte Esterase Urine WBC (Auto) Urine RBC (Auto) 05/28/18 05/28/18 05/28/18 19:25 21:06 21:23 PT INR APTT POC Glucose (mg/dL) 280 H Hemoglobin A1c Iron 47 L TIBC 261 % Saturation 18 L Triglycerides Cholesterol LDL Cholesterol Direct HDL Cholesterol Vitamin B12 Folate TSH 3rd Generation Urine Color Yellow Urine Clarity Clear Urine pH 5.0 Ur Specific [place] 1.013 Urine Protein Negative Urine Glucose (UA) 3+ H Urine Ketones Negative Urine Blood 3+ H Urine Nitrate Negative Urine Bilirubin Negative Urine Urobilinogen Normal Ur Leukocyte Esterase Neg Urine WBC (Auto) 1 Urine RBC (Auto) 59 H 05/29/18 05/29/18 05/29/18 02:05 07:12 08:15 PT INR APTT POC Glucose (mg/dL) 321 H 244 H Hemoglobin A1c Iron TIBC % Saturation Triglycerides Cholesterol LDL Cholesterol Direct HDL Cholesterol Vitamin B12 Folate TSH 3rd Generation 4.32 Urine Color Urine Clarity Urine pH Ur Specific [place] Urine Protein Urine Glucose (UA) Urine Ketones Urine Blood Urine Nitrate Urine Bilirubin Urine Urobilinogen Ur Leukocyte Esterase Urine WBC (Auto) Urine RBC (Auto) 05/29/18 05/29/18 05/29/18 08:31 11:17 16:14 PT 12.5 H INR 1.1 APTT 31 D POC Glucose (mg/dL) 248 H 198 H Hemoglobin A1c Iron TIBC % Saturation Triglycerides Cholesterol LDL Cholesterol Direct HDL Cholesterol Vitamin B12 Folate TSH 3rd Generation Urine Color Urine Clarity Urine pH Ur Specific [place] Urine Protein Urine Glucose (UA) Urine Ketones Urine Blood Urine Nitrate Urine Bilirubin Urine Urobilinogen Ur Leukocyte Esterase Urine WBC (Auto) Urine RBC (Auto) Assessment & Plan (1) Uncontrolled insulin-dependent diabetes mellitus with renal manifestation Assessment and Plan: Endocrine consult reason for consult: uncontrolled diabetes Source: patient and chart review Brendan Stanley is 57 y/o admitted for thigh/hroin pain as per pt. has IDDM (+) neuropathy , (+) retinopathy s/p laser , (+) nephropathy (+) CAD (+) CVA with right HP outpatient diabetes management regimen : lantus 50 units bid , humalin R 24 units tid with meals , humalin low dose scale blood glucose log :200-300 NO hypoglycemia Allergy NKDA Past medical history:HTN , hyperlipidemia , CAD Past surgical history: gastric sleeve 2017 , Cardiac cath s/p stent 2018 , right corneal tresplant 1980 Psychiatry history: (+) psychiatry disorder Social history: denies smoking , ETOH use or illicit drug use Family history: mother with dm ROS: Constitutional: denies fever, tiredness/weakness. HEENT: denies earache, change in voice .Respiratory: denies cough, sob . CVS :no chest pain, no palpitations . Abdomen: no abdominal pain, no nausea /vomiting, no change bowel movement. DIGITAL STRATEGIST : denies light-headedness, dizziness. Extremities: no edema, no tremors. Skin: no itching, no rash Physical exam Well-developed AAO x3 , ,NAD , morbidly obese , right side hemiparesis VSS HEENT: norm cephalic, atraumatic, no lid lag , no exophthalmos NECK: supple, no palpable lymphadenopathy THYROID: no palpable thyromegaly, not tender CHEST: fair air entry, bilateral, CVS: S1,S2 ABDOMEN: bowel sound present, benign, obese, no wide purple striae , no bruises EXTREMITIES: pitting edema, clubbing or cyanosis, no palpable hand tremors Skin: acanthosis nigricans -lab: tsh 4.3 , a1c 9.7 , cr 1.6 GFR 54 Assessment: uncontrolled IDDM with neuropathy , retinopathy diabetic nephropathy obesity , morbid thigh / groin pain hematuria plan : increase lantus 31 units q12 @ 8am & 8pm continue Novoloin R low dose coverage tid & hs increase novoloin R 14 units tid with meals if eat > 60% Thank you for allowing me to participate in the care of the patient, we will follow with you. Mariposa Ramos # [phone] office Fridays & Saturdays address: [address] [place] [address] ,phone # [phone] ,FAX [phone] Status: Acute (2) Morbid obesity Status: Acute (3) Bilateral thigh pain Status: Acute
[2018-05-29 22:52] LABS: URINE BILIRUBIN NEGATIVE (NEGATIVE); URINE BLOOD NEGATIVE (NEGATIVE); URINE CLARITY Clear (Clear); URINE COLOR Yellow (YELLOW); URINE GLUCOSE (UA) 1+ mg/dL (Normal); URINE LEUKOCYTE ESTERASE NEG Leu/uL (Negative); URINE PROTEIN NEGATIVE (NEGATIVE); URINE UROBILINOGEN NORMAL mg/dL (0.2-1.0)
--- NOTE | 2018-05-30 01:56 | PN ---
DATE: 05/29/2018 SUBJECTIVE: The patient is a 57-year-old male. The patient was seen and examined at bedside on 05/29/2018. Still complaining about hip pain bilaterally, lower extremity pain, especially upper thighs. No fever. No chills. No hematuria. No hematochezia. No headache. No dizziness. No chest pain. No palpitation. PHYSICAL EXAMINATION: VITAL SIGNS: Temperature 98.1, pulse 64, respiratory rate 20, blood pressure 108/64, and pulse oximetry 96. HEENT: Head is normocephalic and atraumatic. Eyes, PERRLA. Extraocular muscles intact. Conjunctivae clear. Nose patent. Mucous membranes moist. NECK: Supple. No carotid bruit. No JVD. No thyromegaly. CHEST: Bilaterally symmetrical. HEART: S1 and S2 positive. LUNGS: Clear to auscultation. ABDOMEN: Soft. Bowel sounds present. No organomegaly. EXTREMITIES: No edema. No cyanosis. NEUROLOGICAL: The patient is awake and alert. Moving all four extremities. No focal deficit. LABORATORY DATA: White blood cells 5.3, hemoglobin 12.9, hematocrit 39.8, platelets 227. Sodium 135, potassium 3.9, BUN 18, creatinine 1.6, glucose 199. ASSESSMENT AND PLAN: Mr. Brendan Vega is a 57-year-old male with insulin-dependent diabetes mellitus, uncontrolled dm, history of nephropathy, retinopathy, neuropathy, coronary artery disease, cerebrovascular accident with right-sided weakness, history of gastric surgery, history of psychiatric problem, having pain in the groin and thighs, hematuria. Urologist is on the case. I appreciated Dr. Mariposa Corado's input and Dr. Sam Hewitt' input. The patient is seen by Dr. Darci Yanez also. I reviewed the patient's spine x-ray, hip and pelvis x-ray with gastric ultrasound and duplex scan of lower extremities. Gastrointestinal and deep venous thrombosis prophylaxis. Repeat labs. We will follow up. Emerita Giles MD YUDITH
[2018-05-30] MEDS: (Novolog) Insulin Aspart, Recombinant 100 u/ml 10 ml vial SC SCH ×3 (08:24→18:50)
[2018-05-30] MEDS: (Novolin R) Insulin Human Regular 100 units/ml vial SC SCH ×4 (08:25→21:35)
--- NOTE | 2018-05-30 08:37 | HP ---
CHIEF COMPLAINT: Leg pain, shortness of breath. HISTORY OF PRESENT ILLNESS: The patient is a 57-year-old male with history of coronary artery disease, depression, hypertension, hypercholesterolemia, stroke with residual right sided weakness, presented to the emergency department from [facility], [facility], with complaints of bilateral thigh and groin pain, shortness of breath. The patient states that he has had pain since January 2018, but it worsened recently. He noticed that pain is throbbing. He denies any trauma to the area. No abnormal genitalia. The patient denies rash or dysuria. No fever. No chills. We admitted the patient, did a Doppler of both extremities, gastric ultrasound. The patient's sugar is always uncontrolled, put consult with behavior support specialist is Dr. Mariposa Corado and urologist Dr. Sam Hewitt. PAST MEDICAL HISTORY: Arthritis, coronary artery disease, colonic polyps, depression, gallbladder disease, hypercholesterolemia, hypertension, coronary artery stents x2. FAMILY HISTORY: Father and mother noncontributory. HABITS: Never smoked. No drugs. No ethanol. ALLERGIES: THE PATIENT IS NOT ALLERGIC TO ANY MEDICATIONS. HOME MEDICATIONS: Reviewed by me. REVIEW OF SYSTEMS: The patient is seen in the room. Looking comfortable. No fever. No chills. No hematuria. No hematochezia. No headaches. No dizziness. No chest pain or palpitations. PHYSICAL EXAMINATION: VITAL SIGNS: Temperature 98.8, pulse 52, blood pressure 127/67, respiratory rate 20, and oxygen saturation 97%. HEENT: Head is normocephalic and atraumatic. Eyes: PERRLA. Extraocular muscles intact. Conjunctivae clear. Nose patent. Mucous membranes moist. NECK: Supple. No carotid bruits. No JVD. No thyromegaly. CHEST: Bilaterally symmetrical. HEART: S1 and S2 positive. LUNGS: Clear to auscultation. ABDOMEN: Soft. Bowel sounds are positive. No organomegaly. EXTREMITIES: No edema. No cyanosis. NEUROLOGIC: The patient is awake and alert. Follows simple commands. LABORATORY DATA: White blood cells 5.3, hemoglobin 12.9, hematocrit 39.8, and platelets 227. Sodium 135, potassium 3.9, BUN 18, creatinine 1.6, and glucose 292. Liver function test within normal limits. ASSESSMENT AND PLAN: The patient is a 57-year-old male with renal insufficiency; diabetes mellitus, uncontrolled; glucosuria, came with shortness of breath, pain in the legs. Testicular ultrasound done. Both testes are heterogeneously right greater than left, however, both lower ext arterial flow noted . Bilateral hydrocele. Doppler of the leg is done. No evidence of deep or superficial venous thrombosis of the right lower extremity. In those veins visualized, normal valve function noted on the right side. No evidence of deep or superficial vein thrombosis of the left lower extremities. In those veins visualized, normal valve function noted of the left side. Discussion done with the patient's nurse, gave pain medication. The patient has history of coronary artery disease, depression, hypertension, hypercholesterolemia, stroke with residual right-sided limb deficit, arthritis, colonic polyp, history of cholecystitis, coronary stents x2, PTCA, last was 04/30/2017. Endoscopy was done also. We will do bilateral hip x-rays and lower lumbosacral x-rays to make sure that the patient do not have lumbosacral radiculopathy and no degenerative disease of the joint. Emerita Giles MD MTDD
[2018-05-30] MEDS: Calcium-Vit D 500 mg-200 Units Tab UD PO SCH (09:21)
[2018-05-30] MEDS: Metoprolol Succinate 100 mg XL Tab PO SCH (09:22)
[2018-05-30] MEDS: Multiple Vitamins Tab PO SCH (09:22)
[2018-05-30] MEDS: Divalproex 250 mg DR Tab PO SCH ×2 (09:23→17:33)
[2018-05-30] MEDS: (Lantus) Insulin Glargine, Recombinant SC SCH ×2 (09:30→21:38)
--- NOTE | 2018-05-30 14:46 | CP.PCM.PN ---
Subjective - Date & Time of Evaluation Date of Evaluation: 05/30/18 Time of Evaluation: 14:00 - Subjective Subjective: patient is a 57 year old male with a PMHx of DM Type II, HTN, CAD, Hypercholesterolemia, Stroke with residual right sided weakness who presented to the ED complaining of bilateral groin and thigh pain from [facility]. Patient reports the he has had pain for 4 months, however it has recently worsened. He describes the pain as throbbing. Patient reports that he had shortness of breath that has now resolved and occasional nonproductive cough. Patient denies fevers, chills, night sweats, chest pain, productive cough, hemoptysis. Patient admits that he snores and that he feels tired throughout the day despite sleeping. On examination, patient is lying comfortably in no acute distress. Chest XRay 05/29/18 - Poor inspiration with low lung volumes, crowded bronchovascular markings, and mild bibasilar atelectasis Venous Duplex Scan Bilateral Lower Extremity 3/2 - RIGHT- No evidence of of deep or superficial vein thrombosis of the right lower extremity in those veins visualized. Normal Valve function noted on the right side. LEFT- no evidence of deep or superficial thrombosis of the left lower extremity in those veins visualized. Normal Valve function noted on the left side. Testicular U/S 3/ - Both Testicles are heterogenous, right greater than left however both exhibit arterial flow. Bilateral Hydroceles PMHx: DM Type II, HTN, CAD, Hypercholestrolemia, Stroke with residual right sided weakness, Arthritis, Colonic Polyps Surgical Hx: Coronary Stents x2 (2018) Meds: Allergies: NKDA Family Hx: Noncontributory Social: Denies Tobacco, EtOH, Drugs. Lives in [facility], [facility]. Objective - Vital Signs/Intake and Output Vital Signs (last 24 hours): Temp Pulse Resp BP Pulse Ox 97.6 F 60 20 126/69 98 05/30/18 07:50 05/30/18 07:50 05/30/18 07:50 05/30/18 09:21 05/30/18 07:50 Intake and Output: 05/30/18 05/30/18 06:59 18:59 Intake Total 550 Balance 550 - Medications Medications: Current Medications Albuterol Sulfate (Albuterol 0.083% Inhal Maria Isabel (2.5 Mg/3 Ml) Ud) 2.5 mg IH RQ6 PRN PRN Reason: Shortness of Breath Amlodipine Besylate (Norvasc) 10 mg PO DAILY [facility] Last Admin: 05/30/18 09:22 Dose: 10 mg Aspirin (Ecotrin) 81 mg PO DAILY [facility] Last Admin: 05/30/18 09:22 Dose: 81 mg Calcium/Vitamin D (Oyster Shell Calcium/Vitamin D 500 Mg-200 Iu) 1 tab PO DAILY [facility] Last Admin: 05/30/18 09:21 Dose: 1 tab Clopidogrel Bisulfate (Plavix) 75 mg PO DAILY [facility] Last Admin: 05/30/18 09:22 Dose: 75 mg Divalproex Sodium (Depakote Dr) 250 mg PO BID [facility] Last Admin: 05/30/18 09:23 Dose: 250 mg Docusate Sodium (Colace) 200 mg PO HS PRN PRN Reason: Constipation Last Admin: 05/28/18 11:11 Dose: 200 mg Ergocalciferol (Drisdol 50,000 Intl Units Cap) 1 cap PO QWK [facility] Last Admin: 05/28/18 11:16 Dose: 1 cap Famotidine (Pepcid) 20 mg PO BID [facility] Last Admin: 05/30/18 09:22 Dose: 20 mg Ferrous Sulfate (Feosol) 325 mg PO DAILY [facility] Last Admin: 05/30/18 09:22 Dose: 325 mg Furosemide (Lasix) 20 mg PO DAILY [facility] Last Admin: 05/30/18 09:21 Dose: 20 mg Hydrochlorothiazide (Hydrodiuril) 25 mg PO DAILY [facility] Last Admin: 05/30/18 09:21 Dose: 25 mg Insulin Aspart (Novolog) 14 unit SC TIDPC [facility] Last Admin: 05/30/18 13:59 Dose: 14 units Insulin Glargine (Lantus) 31 unit SC Q12 [facility] Last Admin: 05/30/18 09:30 Dose: 31 units Insulin Human Regular (Novolin R) 0 unit SC ACHS [facility]; Protocol Last Admin: 05/30/18 11:49 Dose: 2 units Losartan Potassium (Cozaar) 100 mg PO DAILY [facility] Last Admin: 05/30/18 09:22 Dose: 100 mg Metoprolol Succinate (Toprol Xl) 100 mg PO DAILY [facility] Last Admin: 05/30/18 09:22 Dose: 100 mg Multivitamins (Hexavitamin) 1 tab PO DAILY [facility] Last Admin: 05/30/18 09:22 Dose: 1 tab Naproxen (Anaprox Ds) 550 mg PO BID [facility] Tramadol HCl (Ultram) 50 mg PO TID PRN PRN Reason: pain Last Admin: 05/30/18 14:01 Dose: 50 mg - Labs Labs: 05/28/18 00:54 05/28/18 00:54 PT 12.5 SECONDS (9.7-12.2) H 05/29/18 08:31 INR 1.1 05/29/18 08:31 APTT 31 SECONDS (21-34) D 05/29/18 08:31 - Head Exam Head Exam: ATRAUMATIC, NORMOCEPHALIC - ENT Exam ENT Exam: Mucous Membranes Moist - Neck Exam Neck Exam: Normal Inspection - Respiratory Exam Respiratory Exam: Decreased Breath Sounds - Cardiovascular Exam Cardiovascular Exam: REGULAR RHYTHM - GI/Abdominal Exam GI & Abdominal Exam: Soft, Normal Bowel Sounds Assessment and Plan (1) HOSSEIN (obstructive sleep apnea) Assessment & Plan: Complaining of nocturnal snoring and excessive sleepiness during the daytime Sleep study as outpatient CPAP at night Status: Acute (2) Morbid obesity Status: Acute (3) Chest pain Assessment & Plan: Venous Doppler negative for DVT Patient with coronary artery disease status post stent placement Consider cardiology workup Status: Acute
--- NOTE | 2018-05-30 15:23 | CP.PCM.CON ---
History of Present Illness - History of Present Illness History of Present Illness: Neurology Consultation Note: Consult requested by Dr. Giles Mr. Vega is a 57-year-old man with a past medical history of DM Type II, HTN, CAD, Hypercholestrolemia, stroke with residual right sided weakness, Arthritis, Colonic Polyps, who lives at [facility], and was brought in for complaining of bilateral thigh and groin pain for the last 4 months. He states that the pain feels like a burning, sharp pain that sometimes feels like it is shooting from the groin to both thighs. Tramadol helps. He was taking it 3 times a day, but not is only getting it twice a day and he says that he has more night time pain. Currently, he says the pain is mild. Review of Systems - Constitutional Constitutional: As Per HPI - EENT Eyes: absent: As Per HPI, Blind Spots, Blurred Vision, Change in Vision, Decreased Night Vision, Diplopia, Discharge, Dry Eye, Exophthalmos, Floaters, Irritation, Itchy Eyes, Loss of Peripheral Vision, Pain, Photophobia, Requires Corrective Lenses, Sees Flashes, Spots in Vision, Tunnel Vision, Other Visual Disturbances, Loss of Vision, Other Ears: absent: As Per HPI, Decreased Hearing, Ear Discharge, Ear Pain, Tinnitus, Abnormal Hearing, Disequilibrium, Dizziness, Other Nose/Mouth/Throat: absent: As Per HPI, Epistaxis, Nasal Congestion, Nasal Discha rge, Nasal Obstruction, Nasal Trauma, Nose Pain, Post Nasal Drip, Sinus Pain, Sinus Pressure, Bleeding Gums, Change in Voice, Dental Pain, Dry Mouth, Dysphagia, Halitosis, Hoarsness, Lip Swelling, Mouth Lesions, Mouth Pain, Odynophagia, Sore Throat, Throat Swelling, Tongue Swelling, Facial Pain, Neck Pain, Neck Mass, Other - Cardiovascular Cardiovascular: absent: As Per HPI, Acrocyanosis, Chest Pain, Chest Pain at Rest, Chest Pain with Activity, Claudication, Diaphoresis, Dyspnea, Dyspnea on Exertion, Edema, Irregular Heart Rhythm, Pain Radiating to Arm/Neck/Jaw, Leg Edema, Leg Ulcers, Lightheadedness, Orthopnea, Palpitations, Paroxysmal Nocturnal Dyspnea, Pedal Edema, Radiating Pain, Rapid Heart Rate, Slow Heart Rate, Syncope, Other - Respiratory Respiratory: absent: As Per HPI, Cough, Dyspnea, Hemoptysis, Dyspnea on Exertion, Wheezing, Snoring, Stridor, Pain on Inspiration, Chest Congestion, Excessive Mucous Production, Change in Mucous Color, Pain with Coughing, Other - Integumentary Integumentary: absent: As Per HPI, Acne, Alopecia, Bleeding Lesions, Change in Hair, Change in Nails, Change in Pigmentation, Changing Lesions, Dry Skin, Erythema, Furuncle, Hirsutism, Lesions, New Lesions, Non-Healing Lesions, Photosensitivity, Pruritus, Rash, Skin Pain, Skin Ulcer, Sores, Striae, Swelling, Unusual Bruising, Wounds, Jaundice, Other - Neurological Neurological: As Per HPI - Psychiatric Psychiatric: absent: As Per HPI, Abnormal Sleep Pattern, Anhedonia, Anxiety, Auditory Hallucinations, Behavioral Changes, Change in Appetite, Change in Libido, Confusion, Depression, Difficulty Concentrating, Hallucinations, Homicidal Ideation, Hopelessness, Irritability, Memory Loss, Mood Swings, Panic Attacks, Paranoia, Suicidal Ideation, Visual Hallucinations, Tactile Hallucinations, Other - Endocrine Endocrine: absent: As Per HPI, Change in Body Appearance, Change in Libido, Cold Intolorance, Deepening of Voice, Excessive Sweating, Fatigue, Flushing, Heat Intolorance, Increase in Ring/Shoe/Hat Size, Palpitations, Polydipsia, Polyphagia, Polyuria, Other Past Patient History - Infectious Disease Hx of Infectious Diseases: None - Past Medical History & Family History Past Medical History?: Yes - Past Social History Smoking Status: Never Smoked - CARDIAC Hx Cardiac Disorders: Yes (CAD, Coronary Stent) Hx Hypercholesterolemia: Yes Hx Hypertension: Yes - PULMONARY Hx Respiratory Disorders: No Hx Tuberculosis: No - NEUROLOGICAL HX Cerebrovascular Accident: Yes (CVA 2007) - HEENT Hx HEENT Problems: Yes Other/Comment: RIGHT EYE [employer] 1984 - RENAL Hx Chronic Kidney Disease: No - ENDOCRINE/METABOLIC Hx Endocrine Disorders: Yes Hx Diabetes Mellitus Type 2: Yes - HEMATOLOGICAL/ONCOLOGICAL Hx Human Immunodeficiency Virus (HIV): No - INTEGUMENTARY Hx Dermatological Problems: No - MUSCULOSKELETAL/RHEUMATOLOGICAL Hx Arthritis: Yes - GASTROINTESTINAL Hx Gall Bladder Disease: Yes (ACUTE CHOLECYSTITIS) - GENITOURINARY/GYNECOLOGICAL Hx Sexually Transmitted Disorders: No - PSYCHIATRIC Hx Depression: Yes Hx Substance Use: No - SURGICAL HISTORY Hx Coronary Stent: Yes (X2, ptca last was 04/2017) - ANESTHESIA Hx Anesthesia: Yes Hx Anesthesia Reactions: No Hx Malignant Hyperthermia: No Meds Allergies/Adverse Reactions: Allergies Allergy/AdvReac Type Severity Reaction Status Date / Time No Known Allergies Allergy Verified 05/28/18 00:06 - Medications Medications: Current Medications Albuterol Sulfate (Albuterol 0.083% Inhal Maria Isabel (2.5 Mg/3 Ml) Ud) 2.5 mg IH RQ6 PRN PRN Reason: Shortness of Breath Amlodipine Besylate (Norvasc) 10 mg PO DAILY [facility] Last Admin: 05/30/18 09:22 Dose: 10 mg Aspirin (Ecotrin) 81 mg PO DAILY [facility] Last Admin: 05/30/18 09:22 Dose: 81 mg Calcium/Vitamin D (Oyster Shell Calcium/Vitamin D 500 Mg-200 Iu) 1 tab PO DAILY [facility] Last Admin: 05/30/18 09:21 Dose: 1 tab Clopidogrel Bisulfate (Plavix) 75 mg PO DAILY [facility] Last Admin: 05/30/18 09:22 Dose: 75 mg Divalproex Sodium (Depakote Dr) 250 mg PO BID [facility] Last Admin: 05/30/18 09:23 Dose: 250 mg Docusate Sodium (Colace) 200 mg PO HS PRN PRN Reason: Constipation Last Admin: 05/28/18 11:11 Dose: 200 mg Ergocalciferol (Drisdol 50,000 Intl Units Cap) 1 cap PO QWK [facility] Last Admin: 05/28/18 11:16 Dose: 1 cap Famotidine (Pepcid) 20 mg PO BID [facility] Last Admin: 05/30/18 09:22 Dose: 20 mg Ferrous Sulfate (Feosol) 325 mg PO DAILY [facility] Last Admin: 05/30/18 09:22 Dose: 325 mg Furosemide (Lasix) 20 mg PO DAILY [facility] Last Admin: 05/30/18 09:21 Dose: 20 mg Hydrochlorothiazide (Hydrodiuril) 25 mg PO DAILY [facility] Last Admin: 05/30/18 09:21 Dose: 25 mg Insulin Aspart (Novolog) 14 unit SC TIDPC [facility] Last Admin: 05/30/18 13:59 Dose: 14 units Insulin Glargine (Lantus) 31 unit SC Q12 [facility] Last Admin: 05/30/18 09:30 Dose: 31 units Insulin Human Regular (Novolin R) 0 unit SC ACHS [facility]; Protocol Last Admin: 05/30/18 11:49 Dose: 2 units Losartan Potassium (Cozaar) 100 mg PO DAILY [facility] Last Admin: 05/30/18 09:22 Dose: 100 mg Metoprolol Succinate (Toprol Xl) 100 mg PO DAILY [facility] Last Admin: 05/30/18 09:22 Dose: 100 mg Multivitamins (Hexavitamin) 1 tab PO DAILY [facility] Last Admin: 05/30/18 09:22 Dose: 1 tab Naproxen (Anaprox Ds) 550 mg PO BID [facility] Pneumococcal Polyvalent Vaccine (Pneumovax 23 Vaccine) 0.5 ml IM .ONCE ONE Stop: 06/02/18 14:45 Tramadol HCl (Ultram) 50 mg PO TID PRN PRN Reason: pain Last Admin: 05/30/18 14:01 Dose: 50 mg Physical Exam - Constitutional Appears: Well - Head Exam Head Exam: ATRAUMATIC, NORMAL INSPECTION, NORMOCEPHALIC - Eye Exam Eye Exam: EOMI, Normal appearance, PERRL - ENT Exam ENT Exam: Mucous Membranes Moist, Normal Exam - Neck Exam Neck exam: Positive for: Normal Inspection - Respiratory Exam Respiratory Exam: Clear to Auscultation Bilateral, NORMAL BREATHING PATTERN - Cardiovascular Exam Cardiovascular Exam: REGULAR RHYTHM, +S1, +S2 - GI/Abdominal Exam GI & Abdominal Exam: Normal Bowel Sounds, Soft. absent: Tenderness - Neurological Exam Neurological exam: Alert, CN II-XII Intact, Oriented x3 Additional comments: Reflexes difficult to obtain due to body habitus. Right side is plegic with u pper extremity contractures. Speech is clear in content. Left upper and lower extremities are relatively normal in strength. Sensation is intact to LT/P on the right and left upper and lower extremities. No allodynia noted. Results - Vital Signs Recent Vital Signs: Last Vital Signs Temp 97.6 F 05/30/18 07:50 Pulse 60 05/30/18 07:50 Resp 20 05/30/18 07:50 BP 126/69 05/30/18 09:21 Pulse Ox 98 05/30/18 07:50 - Labs Result Diagrams: 05/28/18 00:54 05/28/18 00:54 Labs: Laboratory Results - last 24 hr 05/29/18 05/29/18 05/29/18 16:14 21:02 22:44 POC Glucose (mg/dL) 198 H 246 H Urine Color Yellow Urine Clarity Clear Urine pH 6.0 Ur Specific Harwood 1.014 Urine Protein Negative Urine Glucose (UA) 1+ H Urine Ketones Negative Urine Blood Negative Urine Nitrate Negative Urine Bilirubin Negative Urine Urobilinogen Normal Ur Leukocyte Esterase Neg Urine WBC (Auto) < 1 Urine RBC (Auto) 1 05/30/18 05/30/18 07:01 11:16 POC Glucose (mg/dL) 238 H 235 H Urine Color Urine Clarity Urine pH Ur Specific Harwood Urine Protein Urine Glucose (UA) Urine Ketones Urine Blood Urine Nitrate Urine Bilirubin Urine Urobilinogen Ur Leukocyte Esterase Urine WBC (Auto) Urine RBC (Auto) Assessment & Plan (1) Bilateral thigh pain Assessment and Plan: This appears to be chronic and is unlikely neuropathic. It may be due to positioning and body habitus. I recommend an outpatient EMG/NCS. We may try neurontin 300 mg TID to see if it helps with the pain. No further recommendations at this time from a neurological standpoint. Thank you for this consultation. Status: Acute
[2018-05-30] MEDS: Naproxen 550 mg Tab PO SCH (17:26)
--- NOTE | 2018-05-30 19:53 | PN ---
DATE: 05/30/2018 SUBJECTIVE: The patient was seen and examined at bedside on 05/30/2018. Same complaints in the inner sides of the thighs. Dr. Shanna Hewitt was also on the bedside. Arterial Doppler and testicular Doppler noted. X-rays of the back, hip, and pelvis noted. Wanted to do a CAT scan of the hip, pelvis, and back but could not do because of the patient's weight, he will not fit in the machine. Discussion was done with the radiological department. No we will start the patient on some antiinflammatory medication, urged to lose weight. No fevers, no chills, no hematuria or hematochezia. PHYSICAL EXAMINATION: VITAL SIGNS: Temperature 97.6, pulse 60, blood pressure 126/50, respiratory rate 20. HEENT: Head: Atraumatic, normocephalic. Eyes: PERRLA. Extraocular muscles intact. Conjunctivae clear. Nose patent. Mucosal membranes moist. NECK: Supple. No carotid bruit. No JVD or thyromegaly. CHEST: Bilaterally symmetrical. HEART: S1 and S2, positive. LUNGS: Clear to auscultation. ABDOMEN: Soft. Bowel sounds present. No organomegaly. EXTREMITIES: No edema. No cyanosis. NEUROLOGICAL: The patient is awake and alert, moving all four extremities. No focal deficits. MEDICATIONS: Albuterol, naproxen, Colace, Cozaar, Depakote, vitamin D, aspirin, ferrous sulfate, multivitamins, hydrochlorothiazide, Lantus, Lasix, Norvasc, insulin sliding scale, and insulin aspart, NovoLog, Plavix, Toprol, tramadol. LABORATORY DATA: White blood cell 5.62, hemoglobin 12.9, hematocrit 39.8, glucose 235, 238, and 246. ASSESSMENT AND PLAN: Mr. Brendan Vega is a 57-year-old male with insulin-dependent diabetes mellitus type 2; not controlled. Senior Staff Consultant is on the case, Dr. Mariposa Corado, appreciated her input. Comorbid obesity. Discussion done with the patient for a length of time in the presence of Dr. Shanna Hewitt, urged to lose weight. As per the patient, he went for gastric stapling and lost 20 pounds, but regained. Rule out degenerative joint disease. History of depression. Nephropathy. Retinopathy. Neuropathy. Coronary artery disease. History of cerebrovascular accident with right-sided slight weakness. Still having pain on both inner sides of the thighs, mainly musculoskeletal. Added naproxen. We will call a neurological consult to rule out peripheral neuropathy. Meanwhile, continue present treatment but physical therapy will follow up. Emerita Giles MD
[2018-05-31 07:35] LABS: HEMOGLOBIN 12.6 g/dL (12.0-18.0); MEAN CELL VOLUME 79.9 fL (80.0-94.0); MEAN CORPUSCULAR HEMOGLOBIN 26.2 pg (27.0-31.0); MEAN CORPUSCULAR HGB CONC 32.8 g/dL (33.0-37.0); MEAN PLATELET VOLUME 9.6 fL (7.2-11.7); RBC 4.81 Mil/uL (4.40-5.90); RED CELL DISTRIBUTION WIDTH 16.2 % (11.5-14.5); WHITE BLOOD COUNT 5.2 K/uL (4.8-10.8)
[2018-05-31] MEDS: (Novolin R) Insulin Human Regular 100 units/ml vial SC SCH ×3 (08:11→17:28)
[2018-05-31 08:32] LABS: CALCIUM 9.7 mg/dl (8.6-10.4)
[2018-05-31] MEDS: (Novolog) Insulin Aspart, Recombinant 100 u/ml 10 ml vial SC SCH ×3 (09:34→17:28)
[2018-05-31] MEDS: Divalproex 250 mg DR Tab PO SCH ×2 (09:34→17:29)
[2018-05-31] MEDS: Calcium-Vit D 500 mg-200 Units Tab UD PO SCH (09:36)
[2018-05-31] MEDS: Metoprolol Succinate 100 mg XL Tab PO SCH (09:36)
[2018-05-31] MEDS: Multiple Vitamins Tab PO SCH (09:37)
[2018-05-31] MEDS: Naproxen 550 mg Tab PO SCH ×3 (10:06→17:29)
[2018-05-31] MEDS: (Lantus) Insulin Glargine, Recombinant SC SCH (10:06)
--- NOTE | 2018-05-31 15:12 | CP.PCM.PN ---
Subjective - Date & Time of Evaluation Date of Evaluation: 05/31/18 Time of Evaluation: 12:00 - Subjective Subjective: Patient was seen and examined at bedside, resting comfortably. Afebrile and in no acute distress. Denies fevers, chills, chest pain, SOB, cough, sputum, hemoptysis Physical Exam Oxygen Saturation 94%Room General: AAOx3, NAD Cardio: S1. S2, No murmurs, rubs, gallops Resp: CTA, No rales, rhonchi, wheezing Abd: Soft, non-tender, No rebound, rigidity, guarding A/P 1.HOSSEIN -Complains of Nocturnal Snoring and excessive sleepiness during the day -CPAP at night -Sleep Study as Outpatient 2.Morbid Obesity -Acute 3.Chest Pain -Venous Doppler Negative for DVT -Patient with coronary artery disease status post stent placement -consider cardiology workup Objective - Vital Signs/Intake and Output Vital Signs (last 24 hours): Temp Pulse Resp BP Pulse Ox 98.0 F 57 L 20 119/72 94 L 05/31/18 07:00 05/31/18 07:00 05/31/18 07:00 05/31/18 09:35 05/31/18 07:00 Intake and Output: 05/31/18 05/31/18 06:59 18:59 Intake Total 1000 480 Output Total 350 400 Balance 650 80 - Medications Medications: Current Medications Albuterol Sulfate (Albuterol 0.083% Inhal Maria Isabel (2.5 Mg/3 Ml) Ud) 2.5 mg IH RQ6 PRN PRN Reason: Shortness of Breath Amlodipine Besylate (Norvasc) 10 mg PO DAILY [facility] Last Admin: 05/31/18 09:38 Dose: 10 mg Aspirin (Ecotrin) 81 mg PO DAILY [facility] Last Admin: 05/31/18 09:38 Dose: 81 mg Calcium/Vitamin D (Oyster Shell Calcium/Vitamin D 500 Mg-200 Iu) 1 tab PO DAILY [facility] Last Admin: 05/31/18 09:36 Dose: 1 tab Clopidogrel Bisulfate (Plavix) 75 mg PO DAILY [facility] Last Admin: 05/31/18 09:37 Dose: 75 mg Divalproex Sodium (Depakote Dr) 250 mg PO BID [facility] Last Admin: 05/31/18 09:34 Dose: 250 mg Docusate Sodium (Colace) 200 mg PO HS PRN PRN Reason: Constipation Last Admin: 05/31/18 09:37 Dose: 200 mg Ergocalciferol (Drisdol 50,000 Intl Units Cap) 1 cap PO QWK [facility] Last Admin: 05/28/18 11:16 Dose: 1 cap Famotidine (Pepcid) 20 mg PO BID [facility] Last Admin: 05/31/18 09:37 Dose: 20 mg Ferrous Sulfate (Feosol) 325 mg PO DAILY [facility] Last Admin: 05/31/18 09:36 Dose: 325 mg Furosemide (Lasix) 20 mg PO DAILY [facility] Last Admin: 05/31/18 09:35 Dose: 20 mg Heparin Sodium (Porcine) (Heparin) 5,000 units SC Q12H [facility] Hydrochlorothiazide (Hydrodiuril) 25 mg PO DAILY [facility] Last Admin: 05/31/18 09:37 Dose: 25 mg Insulin Aspart (Novolog) 14 unit SC TIDPC [facility] Last Admin: 05/31/18 13:25 Dose: 14 units Insulin Glargine (Lantus) 31 unit SC Q12 [facility] Last Admin: 05/31/18 10:06 Dose: 31 units Insulin Human Regular (Novolin R) 0 unit SC ACHS [facility]; Protocol Last Admin: 05/31/18 12:20 Dose: 3 units Losartan Potassium (Cozaar) 100 mg PO DAILY [facility] Last Admin: 05/31/18 09:38 Dose: 100 mg Metoprolol Succinate (Toprol Xl) 100 mg PO DAILY [facility] Last Admin: 05/31/18 09:36 Dose: 100 mg Multivitamins (Hexavitamin) 1 tab PO DAILY [facility] Last Admin: 05/31/18 09:37 Dose: 1 tab Naproxen (Anaprox Ds) 550 mg PO BID [facility] Last Admin: 05/31/18 10:10 Dose: Not Given Pneumococcal Polyvalent Vaccine (Pneumovax 23 Vaccine) 0.5 ml IM .ONCE ONE Stop: 06/02/18 14:45 Tramadol HCl (Ultram) 50 mg PO TID PRN PRN Reason: pain Last Admin: 05/31/18 08:14 Dose: 50 mg - Labs Labs: 05/31/18 07:26 05/31/18 07:26 PT 12.5 SECONDS (9.7-12.2) H 05/29/18 08:31 INR 1.1 05/29/18 08:31 APTT 31 SECONDS (21-34) D 05/29/18 08:31 Assessment and Plan (1) HOSSEIN (obstructive sleep apnea) Status: Acute (2) Morbid obesity Status: Acute (3) Chest pain Status: Acute
[2018-05-31 15:53] VITALS: BP 144/68; PULSE 62; TEMP 97.1; O2SAT 96
--- NOTE | 2018-05-31 17:56 | CP.PCM.PN ---
Subjective - Date & Time of Evaluation Date of Evaluation: 05/31/18 Time of Evaluation: 17:56 - Subjective Subjective: alert, oriented, no acute pain or distress. Objective - Vital Signs/Intake and Output Vital Signs (last 24 hours): Temp Pulse Resp BP Pulse Ox 97.1 F L 62 20 144/68 96 05/31/18 15:52 05/31/18 15:52 05/31/18 15:52 05/31/18 15:52 05/31/18 15:52 Intake and Output: 05/31/18 05/31/18 06:59 18:59 Intake Total 1000 480 Output Total 350 400 Balance 650 80 - Medications Medications: Current Medications Albuterol Sulfate (Albuterol 0.083% Inhal Maria Isabel (2.5 Mg/3 Ml) Ud) 2.5 mg IH RQ6 PRN PRN Reason: Shortness of Breath Amlodipine Besylate (Norvasc) 10 mg PO DAILY [facility] Last Admin: 05/31/18 09:38 Dose: 10 mg Aspirin (Ecotrin) 81 mg PO DAILY [facility] Last Admin: 05/31/18 09:38 Dose: 81 mg Calcium/Vitamin D (Oyster Shell Calcium/Vitamin D 500 Mg-200 Iu) 1 tab PO DAILY [facility] Last Admin: 05/31/18 09:36 Dose: 1 tab Clopidogrel Bisulfate (Plavix) 75 mg PO DAILY [facility] Last Admin: 05/31/18 09:37 Dose: 75 mg Divalproex Sodium (Depakote Dr) 250 mg PO BID [facility] Last Admin: 05/31/18 17:29 Dose: 250 mg Docusate Sodium (Colace) 200 mg PO HS PRN PRN Reason: Constipation Last Admin: 05/31/18 09:37 Dose: 200 mg Ergocalciferol (Drisdol 50,000 Intl Units Cap) 1 cap PO QWK [facility] Last Admin: 05/28/18 11:16 Dose: 1 cap Famotidine (Pepcid) 20 mg PO BID [facility] Last Admin: 05/31/18 17:30 Dose: 20 mg Ferrous Sulfate (Feosol) 325 mg PO DAILY [facility] Last Admin: 05/31/18 09:36 Dose: 325 mg Furosemide (Lasix) 20 mg PO DAILY [facility] Last Admin: 05/31/18 09:35 Dose: 20 mg Gabapentin (Neurontin) 400 mg PO TID [facility] Last Admin: 05/31/18 17:30 Dose: 400 mg Heparin Sodium (Porcine) (Heparin) 5,000 units SC Q12H [facility] Last Admin: 05/31/18 17:29 Dose: 5,000 units Hydrochlorothiazide (Hydrodiuril) 25 mg PO DAILY [facility] Last Admin: 05/31/18 09:37 Dose: 25 mg Insulin Aspart (Novolog) 14 unit SC TIDPC [facility] Last Admin: 05/31/18 17:28 Dose: 14 units Insulin Glargine (Lantus) 31 unit SC Q12 [facility] Last Admin: 05/31/18 10:06 Dose: 31 units Insulin Human Regular (Novolin R) 0 unit SC ACHS [facility]; Protocol Last Admin: 05/31/18 17:28 Dose: 2 units Losartan Potassium (Cozaar) 100 mg PO DAILY [facility] Last Admin: 05/31/18 09:38 Dose: 100 mg Metoprolol Succinate (Toprol Xl) 100 mg PO DAILY [facility] Last Admin: 05/31/18 09:36 Dose: 100 mg Multivitamins (Hexavitamin) 1 tab PO DAILY [facility] Last Admin: 05/31/18 09:37 Dose: 1 tab Naproxen (Anaprox Ds) 550 mg PO BID [facility] Last Admin: 05/31/18 17:29 Dose: 550 mg Pneumococcal Polyvalent Vaccine (Pneumovax 23 Vaccine) 0.5 ml IM .ONCE ONE Stop: 06/02/18 14:45 - Labs Labs: 05/31/18 07:26 05/31/18 07:26 PT 12.5 SECONDS (9.7-12.2) H 05/29/18 08:31 INR 1.1 05/29/18 08:31 APTT 31 SECONDS (21-34) D 05/29/18 08:31 Assessment and Plan - Assessment and Plan (Free Text) Assessment: 57 year old obese male admitted with leg and thigh pain, seen and examined. Alert, oriented, no acute distress. Cleared by neuro, discussed with DR Giles, plan to discharge back to the half-way today. Started on neurontin as per neuro, advised PT/OT as tolerated.
--- NOTE | 2018-05-31 19:40 | CON ---
DATE: 05/29/2018 UROLOGY CONSULTATION REQUESTED BY: Emerita Giles MD UROLOGY CONSULTATION FILLED BY: Shanna Hewitt MD REASON FOR CONSULTATION: Scrotal pain. HISTORY OF PRESENT ILLNESS: The patient is a 57-year-old male with pain of the groin and thigh. The patient is in otherwise fair to poor health. The patient has history of hemiparesis with previous cerebrovascular accident. He has weakness of the right upper extremity and right lower extremity. The patient has history of obesity. The patient is a resident of a [facility] care facility. The patient presents with a several-month history of pain involving both thighs, right greater than left. Pain also involves the area of the groin. The patient reports no nausea or vomiting. No hematuria. No history of urolithiasis. The patient voids with fair to good urinary stream. No history of urinary tract infection or calculus. No recent fever or rigors. The patient has history of previous bariatric surgery. He reports he apparently lost 20 pounds after his bariatric surgery. The patient reports no nausea or vomiting. The patient does get out of bed, although has not done so while in the [facility]. The patient is unemployed. The patient does not smoke. There is history of coronary artery disease. PHYSICAL EXAMINATION: GENERAL: The patient is well-developed, well-nourished, obese male. The patient is awake and alert. The patient is oriented ABDOMEN: Soft. Obese. No mass or organomegaly. BACK: No CVA tenderness. GENITALIA: Normal male. Mild edema of scrotum. Scrotal contents without inflammation. Testes are descended bilaterally. Testes are normal. LABORATORY DATA: Reviewed. Scrotal ultrasound reveals good blood flow to the testes. There is no testicular mass. There is heteroechogenicity of the testes. Also noted is hyperglycemia. Chemistry and CBC reviewed as well. (The patient reports that he did not have history of diabetes). IMPRESSION: A 57-year-old male with history of stroke and cerebrovascular disease. Possibly newly diagnosed diabetes. Now with pain of the thigh and groin. There is no evidence of primary testicular pathology at present. The pain may be related to neuropathy. RECOMMENDATIONS AND PLAN: Scrotal elevation. I have discussed the findings with the patient. I will discuss the findings further with the attending physician. Further therapy to follow according to the patient's clinical course. Thank you for recommending the patient for urology consultation. Shanna Hewitt MD
--- NOTE | 2018-05-31 20:31 | PN ---
DATE: 05/31/2018 SUBJECTIVE: The patient is a 57-year-old male. The patient was seen and examined on the bedside. Looking comfortable. No change in the status. Still complaining about pain in the both inner thighs. No fever. No chills. No hematuria. No hematochezia. No headache. No dizziness. No chest pain. No palpitation.. PHYSICAL EXAMINATION: VITAL SIGNS: Temperature 97.6, pulse 60, respiratory rate 20, blood pressure 120/69, pulse oximetry of 98%. HEENT: Head: Normocephalic and atraumatic. Eyes: PERRLA. Extraocular muscles intact. Conjunctivae clear. Nose patent. Mucous membranes moist. NECK: Supple. No carotid bruit. No JVD. No thyromegaly. CHEST: Bilaterally symmetrical. HEART: S1 and S2 positive. LUNGS: Clear to auscultation. ABDOMEN: Soft. Bowel sounds present. No organomegaly. EXTREMITIES: No edema. No cyanosis. NEUROLOGICAL: The patient is awake and alert. Moving all four extremities. No focal deficit. LABORATORY DATA: White blood cell 5.3, hemoglobin 12.9, hematocrit 39.8, platelets 227. Sodium 135, potassium 3.9, BUN 18, creatinine 1.3, glucose 199. MEDICATIONS: Insulin, Cozaar, metoprolol, naproxen, tramadol, albuterol, Norvasc, Ecotrin, vitamin D, Plavix, Depakote, Colace, iron, Lasix, Lantus. ASSESSMENT AND PLAN: Mr. Brendan Vega is a 57-year-old male, came with bilateral thigh pain. According to Neurology, it looks like chronic and is unlikely neuropathic. As per neurologist, it may be due to positioning and body habitus. He wants to give Neurontin t.i.d. if it helps with the pain. From neurologist, no further recommendation. The patient has comorbid obesity, status post gastric surgery, lost only 20 pounds. History of diabetes mellitus type 2, hypertension, coronary artery disease, hypercholesterolemia, stroke with residual right-sided weakness, arthritis, chronic polyps. Resident of [facility]. We did testicular ultrasound, seen by urologist. Duplex of lower extremity negative for deep venous thrombosis. Hip, pelvis, and back x-rays negative. Plan to do CAT scan, but the patient will not fit in the machine, so we cannot to do CAT scan. Cleared by the neurologist, belt polisher, mess attendant crew. Can go back to place. Continue present treatment. Repeat labs. We will follow up. Emerita Giles MD
--- NOTE | 2018-06-01 00:13 | PCM.URO ---
Urology Progress Note - General General: Tolerating Diet - Subjective Abdominal Pain: No Nausea: No Vomiting: No Voiding Well: Yes Hematuria: No Urinary Urgency: No Good Stream: Yes Fever & Chills: No (c/o thigh and groin pain) - Objective Lab Results Last 24 Hours: Laboratory Results - last 24 hr 05/29/18 05/31/18 05/31/18 20:02 07:00 07:26 WBC 5.2 RBC 4.81 Hgb 12.6 Hct 38.4 MCV 79.9 L MCH 26.2 L MCHC 32.8 L RDW 16.2 H Plt Count 225 MPV 9.6 Sodium Potassium Chloride Carbon Dioxide Anion Gap BUN Creatinine Est GFR ( Amer) Est GFR (Non-Af Amer) POC Glucose (mg/dL) 243 H Random Glucose Calcium Free PSA 0.1 % Free PSA 50 Total PSA 0.2 05/31/18 05/31/18 05/31/18 07:26 11:01 16:26 WBC RBC Hgb Hct MCV MCH MCHC RDW Plt Count MPV Sodium 136 Potassium 4.0 Chloride 103 Carbon Dioxide 24 Anion Gap 12 BUN 26 H Creatinine 1.6 H Est GFR ( Amer) 54 Est GFR (Non-Af Amer) 45 POC Glucose (mg/dL) 298 H 261 H Random Glucose 234 H Calcium 9.7 Free PSA % Free PSA Total PSA 05/31/18 21:00 WBC RBC Hgb Hct MCV MCH MCHC RDW Plt Count MPV Sodium Potassium Chloride Carbon Dioxide Anion Gap BUN Creatinine Est GFR ( Amer) Est GFR (Non-Af Amer) POC Glucose (mg/dL) 262 H Random Glucose Calcium Free PSA % Free PSA Total PSA Intake & Output: Intake & Output 05/31/18 05/31/18 06/01/18 06:59 18:59 06:59 Intake Total 1000 480 Output Total 350 400 Balance 650 80 Intake: Oral 1000 480 Output: Urine 350 400 Urine, Voided 350 400 Other: # Voids Urine, Voided 4 # Bowel Movements 0 Vital Signs: Vital Signs - 24 hr 05/31/18 05/31/18 05/31/18 07:00 09:35 15:52 Temperature 98.0 F 97.1 F L Pulse Rate 57 L 62 Respiratory 20 20 Rate Blood Pressure 119/76 119/72 144/68 O2 Sat by Pulse 94 L 96 Oximetry - Physical Exam Abdominal Exam: Soft, Non-Tender, Non-Distended Genitalia: Without Inflammation Urine Color: Clear - Male Phallus: Normal Scrotum: Normal Testes: Normal: Bilateral - Plan Additional Information: IMP: urologically stable. poss neuropathy. discussed finding w pt and with primary MD. consider scrotal support, nsaid rx, poss neurological evaluation. YS - Date & Time of Note Date: 05/30/18 Time: 12:25
[2018-06-01 12:11] VITALS: BMI 59.6
[2018-06-02] MEDS ORDERED: Pneumococcal 23-Valent Vaccine IM ONE (14:44)
== END 2018-05-31 22:04 | DRG 556 ==
LOC: C.ER 23:47 → C.3T 05-28 02:57 → UNDOADMOB 05-28 02:57 → C.3T 05-28 04:51 → OBSVTOIN 05-30 12:07 → INTOOBSV 05-30 12:07
PROVIDERS: ADMIT Internal Medicine; ATTEND Internal Medicine
DX: M79.652 Pain in left thigh (principal); M79.651 Pain in right thigh; I69.351 Hemiplegia and hemiparesis following cerebral infarction affecting right dominant side; N43.3 Hydrocele, unspecified; R31.29 Other microscopic hematuria; G47.33 Obstructive sleep apnea (adult) (pediatric); I10 Essential (primary) hypertension; E11.21 Type 2 diabetes mellitus with diabetic nephropathy; E11.40 Type 2 diabetes mellitus with diabetic neuropathy, unspecified; E11.65 Type 2 diabetes mellitus with hyperglycemia; I25.10 Atherosclerotic heart disease of native coronary artery without angina pectoris; E11.319 Type 2 diabetes mellitus with unspecified diabetic retinopathy without macular edema; E78.5 Hyperlipidemia, unspecified; E66.01 Morbid (severe) obesity due to excess calories; E78.00 Pure hypercholesterolemia, unspecified; Z68.43 Body mass index [BMI] 50.0-59.9, adult; Z95.5 Presence of coronary angioplasty implant and graft; Z79.4 Long term (current) use of insulin; Z79.899 Other long term (current) drug therapy; Z86.010 Personal history of colon polyps; Z98.84 Bariatric surgery status; Z94.7 Corneal transplant status; Z83.3 Family history of diabetes mellitus

== ENCOUNTER 2018-06-20 09:02 | Outpatient (CLI) | payer MEDICARE, MEDICAID | END 2018-06-20 09:03 | disposition home or self-care (01) | LOC: C.RADIC 09:02 ==

== ENCOUNTER 2018-06-25 09:41 | Emergency (ER) | payer MEDICARE, MEDICAID ==
[2018-06-25 09:41] VITALS: BMI 59.6
[2018-06-25] MEDS ORDERED: Oxycodone/Acetaminophen 5/325 mg Tab PO STA (10:44)
--- NOTE | 2018-06-25 10:47 | C.PDOC ---
History Of Present Illness 58 y/o male is brought in by BLS from a assisted with complaints of pain in his inner thighs since January 2018. Patient states the pain comes and goes, and denies any injury to the area. He reports that he never told his PMD Dr. Giles about this pain but states he complained about it in the nursery home which he was given tramadol. Patient states that the medicine was not strong enough so he called 911. He denies any trauma, rash, urinary symptoms, or other symptoms. Time Seen by Provider: 06/25/18 10:07 Chief Complaint (Nursing): Groin Pain History Per: Patient History/Exam Limitations: no limitations Onset/Duration Of Symptoms: Days Current Symptoms Are (Timing): Still Present Past Medical History Reviewed: Historical Data, Nursing Documentation, Vital Signs Vital Signs: Last Vital Signs Temp 98.8 F 06/25/18 09:55 Pulse 68 06/25/18 09:55 Resp 18 06/25/18 09:55 BP 127/77 06/25/18 09:55 Pulse Ox 100 06/25/18 09:55 - Medical History PMH: Arthritis, CAD, Colonic Polyps, Depression, Gall Bladder Disease (ACUTE CHOLECYSTITIS), HTN, Hypercholesterolemia Denies: Diabetes, Hepatitis, HIV, Chronic Kidney Disease, Sexually Transmitted Disease Comment Only: Seizures (pt denies seizures) Surgical History: Coronary Stent (X2, ptca last was 04/2017), Endoscopy Denies: Pacemaker - [facility] CATARAC PHACOEMULS/ASPIR (03/06/04) EXTRACAP LENS EXTRAC NEC (03/06/04) Family History: States: No Known Family Hx - Social History Hx Tobacco Use: No Hx Alcohol Use: No Hx Substance Use: No - Immunization History Hx Tetanus Toxoid Vaccination: No Hx Influenza Vaccination: Yes Hx Pneumococcal Vaccination: Yes Review Of Systems Except As Marked, All Systems Reviewed And Found Negative. Constitutional: Negative for: Fever, Chills Cardiovascular: Negative for: Chest Pain Respiratory: Negative for: Shortness of Breath Gastrointestinal: Negative for: Nausea, Vomiting Genitourinary: Negative for: Dysuria, Hematuria Musculoskeletal: Positive for: Other (Inner Thigh Pain). Negative for: Back Pain Skin: Negative for: Rash Neurological: Negative for: Weakness, Numbness Physical Exam - Physical Exam Appears: Non-toxic, No Acute Distress Skin: Warm, Dry Head: Atraumatic, Normacephalic Eye(s): bilateral: Normal Inspection Oral Mucosa: Moist Neck: Supple Cardiovascular: Rhythm Regular, No Murmur Respiratory: Normal Breath Sounds, No Rales, No Rhonchi, No Wheezing Extremity: Pedal Edema, No Deformity, Other (Bilateral thighs: no erythema, swel ling, warmth, or open wound) Extremity: Bilateral: Atraumatic, Normal ROM Neurological/Psych: Oriented x3, Normal Speech, Normal Motor Gait: Steady ED Course And Treatment O2 Sat by Pulse Oximetry: 100 (RA) Pulse Ox Interpretation: Normal Progress Note: Patient was given neurontin and percocet PO for the pain. On reassessment, patient is feeling better and improved. Patient will be discharged to assisted and was advised to follow up with PMD within 1-2 days for further evaluation. Patient medical record was reviewed and was called. Patient was admitted for the same pain 2 weeks ago, had a full work up and was d/c back to [place]. requested to give 1 dose of medication and to be send back to [facility]. Disposition - Disposition Disposition: TRANSF TO SNF Disposition Time: 10:45 Condition: STABLE Additional Instructions: Follow up with PMD within 1-2 days. Return to ED if feel worse. Instructions: Chronic Pain (DC) Forms: [facility] (Greek) - Clinical Impression Clinical Impression: Chronic pain - PA / COOK SAUCE / Resident Statement MD/DO has reviewed & agrees with the documentation as recorded. - Scribe Statement The provider has reviewed the documentation as recorded by the Scribe Roxie Persaud All medical record entries made by the Abelibivet were at my direction and personally dictated by me. I have reviewed the chart and agree that the record accurately reflects my personal performance of the history, physical exam, medical decision making, and the department course for this patient. I have also personally directed, reviewed, and agree with the discharge instructions and disposition.
[2018-06-25] MEDS ORDERED: Oxycodone/Acetaminophen 5/325 mg Tab ONE (10:59)
[2018-06-25 15:23] VITALS: BP 147/80; PULSE 74; RESP 20; TEMP 98.5
[2018-06-26 11:52] VITALS: O2SAT 100
== END 2018-06-25 15:22 ==
LOC: C.ER 09:41
DX: G89.29 Other chronic pain (principal); E78.00 Pure hypercholesterolemia, unspecified; I10 Essential (primary) hypertension; I25.10 Atherosclerotic heart disease of native coronary artery without angina pectoris